=== PATIENT | male | born 1995 | race Caucasian/White ===

== ENCOUNTER 2019-09-06 16:33 | Emergency (ER) | payer BC, SELFPAY ==
--- NOTE | 2019-09-06 17:00 | XR_ITS ---
PROCEDURE: XR CHEST 2V CLINICAL HISTORY: CHEST CONGESTION The COMPARISON: No exams were available for comparison FINDINGS: The cardiomediastinal silhouette and pulmonary vascularity are within normal limits. The lungs are clear without infiltrates, suspicious nodules, or pleural effusions. No acute bony abnormalities. IMPRESSION: No acute findings. Dictated by: Jaime Ball MD 09/06/2019 18:01 Electronically signed by Jaime Ball MD in [place] 09/06/2019 18:01
[2019-09-06 17:03] VITALS: BP 148/91; PULSE 102; RESP 20; TEMP 36.6; O2SAT 100; BMI 35.1
--- NOTE | 2019-09-06 17:23 | HMH.EDUTC ---
[facility] [place] Disposition Clinical Impression: Bronchitis Sinusitis Qualifiers: Sinusitis location: unspecified location Chronicity: unspecified Qualified Code(s): J32.9 - Chronic sinusitis, unspecified Disposition: Home, Self-Care Condition on Discharge: Good Instructions: Sinusitis (Alternative Therapy), DI for Cough -- Adult, Cough Additional Instructions: *Monitor Temp, Over the counter Motrin or Tylenol as directed/as needed Tylenol every 4 hours and Motrin every 6 hours (as long as your family doctor has told you that you can take it) for fever or pain. and straight to ER if unable to lower temp less than 101.0 after medication given *Warm salt water gargles may help to soothe the throat *Throat Lozenges *Warm fluids like tea with honey may help to soothe the throat *Sleep elevated *Humidifier/Vaporizer Take medication as prescribed FOllow up with PCP if no improvement or any worsening of symptoms in the next 48-72 hours Return if needed Follow up IMMEDIATELY for new or worsening symptoms or no Noticeable improvement over the next 48-72 hours. 911 for difficulty breathing or swallowing Prescriptions: Albuterol Sulfate [Proventil-HFA 90mcg/puff Inh] 1 - 2 puffs IH Q4HP PRN #1 inh PRN Reason: Shortness Of Breath Transmission Status: Pending to [facility] methylPREDNISolone [Medrol 4mg tab] 4 mg PO DIRECTED #21 tab Transmission Status: Pending to [facility] Azithromycin [Z-Ulysses 250mg Tab] 250 mg PO DIRECTED #6 tab Transmission Status: Pending to [facility] Referrals: Provider,Referral, MD [Primary Care Provider] - As needed Medical Decision Making - Jigar Inquiry Pt receiving controlled substance: No Jigar was queried for this patient: No Vital Signs: 09/06/19 17:03 Temperature 97.8 F Temperature Source Oral Pulse Rate [Right Brachial] 102 H Respiratory Rate 20 Blood Pressure [Right Arm] 148/91 H Blood Pressure Mean [Right Arm] 110 Blood Pressure Source [Right Arm] Automatic Cuff Blood Pressure Position [Right Arm] Sitting 02 Sat by Pulse Oximetry 100 Oxygen Delivery Method Room Air Orders (Tests/Meds): ORDERS Category Date Time Status CXR 2 view (NOT portable) [XR chest 2V] Stat Exams 09/06/19 17:00 Taken - Radiology Data #1 Image(s): Chest Image Reviewed: Yes I reviewed the patient's radiology image w/the ED provider Preliminary Findings: Normal/NAD [facility] HPI - General Stated complaint: Chest congestion Time Seen by Provider: 09/06/19 17:23 Mode of Arrival: Ambulatory Source of Information: Patient Limitations: No Limitations Description of Symptoms (Recalled from Triage Doc. by RN): PATIENT C/O CHEST CONGESTION X 1 WEEK. HEENT Symptoms (Recalled from RN notes): No Resp Symptoms (Recalled from RN notes): Yes Skin Symptoms (Recalled from RN notes): No MS Symptoms (Recalled from RN notes): No Functional Status (Recalled from RN notes): WNL - History of Present Illness Provider Complaint: Patient states that he has been having sinus pain and pressure along with drainage in the back of his throat and feels like it is moving into his chest States that he has had a cough at times and coughing up some thick mucous at times States that today he felt like he was more congested so he came in to get checked - Related Data Previous Rx's Medication Instructions Recorded Albuterol Sulfate [Proventil-HFA 1 - 2 puffs IH Q4HP PRN #1 inh 09/06/19 90mcg/puff Inh] Azithromycin [Z-Ulysses 250mg Tab] 250 mg PO DIRECTED #6 tab 09/06/19 methylPREDNISolone [Medrol 4mg 4 mg PO DIRECTED #21 tab 09/06/19 tab] Allergies Allergy/AdvReac Type Severity Reaction Status Date / Time No Known Allergies Allergy Verified 09/06/19 17:06 - Worker's Comp Is this a Worker's Comp case?: No [facility] History - Hepatitis A Screen Drug use history?: No High risk sexual behaviors?: No History of sexually transmitted infection?: N
[2019-09-06 17:39] VITALS: BP 148/91; PULSE 102; RESP 20; TEMP 36.6; O2SAT 100
== END 2019-09-06 17:44 | disposition home or self-care (01) ==
PROVIDERS: Emergency Provider Nurse Practitioner
DX: J20.9 Acute bronchitis, unspecified (principal); J32.9 Chronic sinusitis, unspecified
CPT/HCPCS: 71046; 99201

== ENCOUNTER → 2020-12-20 14:40 | Outpatient (CLI) | payer BC, SELFPAY | PROVIDERS: PCP Family Medicine; Visit Provider Nurse Practitioner | DX: Z20.822 Contact with and (suspected) exposure to COVID-19 (principal); U07.1 COVID-19 | CPT/HCPCS: C9803; U0003; U0005 ==

== ENCOUNTER 2021-01-30 18:24 | Emergency (ER) | payer BC, SELFPAY ==
[2021-01-30 19:35] VITALS: BP 115/82; PULSE 119; RESP 21; TEMP 37.8; O2SAT 98; BMI 34.8
[2021-01-30 20:04] LABS: UTC Strep Screen (Rapid) Negative (Negative)
--- NOTE | 2021-01-30 20:10 | HMH.EDUTC ---
[facility] [place] Disposition Clinical Impression: Sinusitis Qualifiers: Sinusitis location: unspecified location Chronicity: unspecified Qualified Code(s): J32.9 - Chronic sinusitis, unspecified Disposition: Home, Self-Care Condition on Discharge: Good Instructions: Sinusitis, DI for Sinusitis, Azithromycin Additional Instructions: *Monitor Temp, Over the counter Motrin or Tylenol as directed/as needed Tylenol every 4 hours and Motrin every 6 hours (as long as your family doctor has told you that you can take it) for fever or pain. and straight to ER if unable to lower temp less than 101.0 after medication given *Warm salt water gargles may help to soothe the throat *Throat Lozenges *Warm fluids like tea with honey may help to soothe the throat *Sleep elevated *Humidifier/Vaporizer *Flonase 2 sprays in each nostril daily but be aware that it may take 2-3 days before you notice improvement Your throat swab was sent for culture. Those results are typically sent to your primary care. Be sure to follow up in 2-3 days with your family doctor/primary care physician if no improvement so they can review those result and treat if necessary. If you don?t have a primary care doctor, I recommend you get one but in the mean time, you will have to return to a walk in clinic Follow up IMMEDIATELY for new or worsening symptoms or no Noticeable improvement over the next 48-72 hours. 911 for difficulty breathing or swallowing You were tested for today for COVID19 your test result should be back in the next 24-48 hours, you can view your results on the [facility] [employer] portal you will be given hand out on how to log on if you have trouble you may call the [facility] You was given a handout with instructions for Self Quarantine and Self isolation for while you wait on test results and what to do if they are positive If you are positive the Health Dept will be contacting you also Make sure to take your Vitamins Vit. C Vit D and Zinc if you can take them Prescriptions: Fluticasone Propionate [Flonase 50mcg nasal spray 16gm] 1 spr NS DAILY #1 ml Transmission Status: Pending to [facility] methylPREDNISolone [Medrol 4mg tab] 4 mg PO DIRECTED #21 tab Transmission Status: Pending to [facility] Azithromycin [Z-Ulsyses 250mg Tab] 250 mg PO DIRECTED #6 tab Transmission Status: Pending to [facility] Referrals: Drake Serrano MD [Primary Care Provider] - As needed Forms: Work/School Release Medical Decision Making - Jigar Inquiry Pt receiving controlled substance: No Jigar was queried for this patient: No Vital Signs: 01/30/21 19:35 Temperature 100.0 F H Temperature Source Oral Pulse Rate [Right Brachial] 119 H Respiratory Rate 21 Blood Pressure [Right Arm] 115/82 Blood Pressure Mean [Right Arm] 93 Blood Pressure Source [Right Arm] Automatic Cuff 02 Sat by Pulse Oximetry 98 Oxygen Delivery Method Room Air - Lab Data Lab results reviewed: Yes: I reviewed the patient's lab results. Lab Results 01/30/21 19:47: Strep Scn Rapid Clinic Negative Orders (Tests/Meds): ORDERS Category Date Time Status Covid-19 Nasal PCR ([facility]) Routine Lab 01/30/21 19:50 Received Strep Screen Confirmation Stat Micro 01/30/21 19:47 Received [facility] UTC HPI - General Stated complaint: fever,sore throat,[place],weak,diarrhea Time Seen by Provider: 01/30/21 20:10 Mode of Arrival: Ambulatory Source of Information: Patient Limitations: No Limitations Description of Symptoms (Recalled from Triage Doc. by RN): PATIENT C/O RUNNY NOSE, FEVER, COUGH, CHILLS, DIARRHEA, AND NAUSEA X 2 DAYS HEENT Symptoms (Recalled from RN notes): Yes Resp Symptoms (Recalled from RN notes): No Skin Symptoms (Recalled from RN notes): No MS Symptoms (Recalled from RN notes): No Functional Status (Recalled from RN notes): WNL - History of Present Illness Provider Complaint: Patient states that he has been having sinus congestion for over a week States that for the la
[2021-01-30 20:42] VITALS: BP 115/82; PULSE 119; RESP 21; TEMP 37.8; O2SAT 98
== END 2021-01-30 20:48 | disposition home or self-care (01) ==
PROVIDERS: Emergency Provider Nurse Practitioner; PCP Family Medicine
DX: J32.9 Chronic sinusitis, unspecified (principal); Z20.822 Contact with and (suspected) exposure to COVID-19
CPT/HCPCS: 87880; 99203; C9803; G0463; U0003; U0005

== ENCOUNTER → 2021-03-12 17:36 | Outpatient (CLI) | payer BC, SELFPAY | PROVIDERS: PCP Family Medicine; Visit Provider Nurse Practitioner Family | DX: U07.1 COVID-19 (principal) | CPT/HCPCS: C9803; U0003; U0005 ==

== ENCOUNTER 2021-04-03 23:54 | Emergency (ER) | payer BC, SELFPAY ==
[2021-04-04 00:29] VITALS: BP 140/96; PULSE 103; O2SAT 97
[2021-04-04 01:00] VITALS: BP 125/71; PULSE 90; O2SAT 96
[2021-04-04 01:09] VITALS: BP 140/96; PULSE 114; RESP 21; TEMP 37.1; O2SAT 98; BMI 30.1
--- NOTE | 2021-04-04 01:42 | CT_ITS ---
PROCEDURE INFORMATION: Exam: CTA Chest With Contrast Exam date and time: 04/04/2021 1:42 AM Age: 25 years old Clinical indication: Cough; Additional info: Cough, SOB TECHNIQUE: Imaging protocol: Computed tomographic angiography of the chest with contrast. 3D rendering (Not supervised by radiologist): MIP and/or 3D reconstructed images were created by the technologist. Radiation optimization: All CT scans at this facility use at least one of these dose optimization techniques: automated exposure control; mA and/or kV adjustment per patient size (includes targeted exams where dose is matched to clinical indication); or iterative reconstruction. Contrast material: ISOVUE 370; Contrast volume: 70 ml; Contrast route: INTRAVENOUS (IV); COMPARISON: CR XR CHEST 2V 04/04/2021 1:12 AM FINDINGS: Limitations: Bolus timing is non-diagnostic for exclusion of most pulmonary emboli (segmental/subsegmental) due to suboptimal pulmonary arterial opacification (main pulmonary artery <200 HU). Pulmonary arteries: No large central pulmonary emboli (saddle embolus/lobar). Dilated central pulmonary arteries. Aorta: No aortic dissection or aneurysm. Lungs: No focal consolidation. No mass. Pleural spaces: No pneumothorax. No pleural effusion. Heart: Prominent pericardial sleeve incidentally noted along the inferior right pulmonary vein. No interventricular septal deviation or abnormal RV:LV ratio to suggest right heart strain. Lymph nodes: No enlarged lymph nodes by CT criteria. Intraperitoneal space: No emergent findings or suspicious mass lesions in the visualized upper abdomen. Bones/joints: No acute fracture or malalignment. Soft tissues: Unremarkable. IMPRESSION: 1. No acute findings in the chest. 2. No evidence of large pulmonary emboli (saddle embolus/lobar). Technically non-diagnostic study for definitive exclusion of most pulmonary emboli (segmental/subsegmental). 3. Dilated central pulmonary arteries, suggestive of pulmonary arterial hypertension. No CT evidence of right heart strain.
--- NOTE | 2021-04-04 01:42 | XR_ITS ---
PROCEDURE INFORMATION: Exam: XR Chest Exam date and time: 04/04/2021 1:42 AM Age: 25 years old Clinical indication: Cough and shortness of breath; Additional info: Cough, SOB TECHNIQUE: Imaging protocol: XR of the chest. Views: 2 views. COMPARISON: CR XR CHEST 2V 09/06/2019 5:03 PM FINDINGS: Lungs: Lungs are clear. Pleural spaces: No pleural effusion. No pneumothorax. Heart/Mediastinum: Cardiomediastinal silouhette is within normal limits. Bones/joints: No acute osseous abnormality. Soft tissues: Unremarkable. IMPRESSION: No acute findings.
[2021-04-04 02:00] VITALS: BP 117/69; PULSE 88; O2SAT 95
--- NOTE | 2021-04-04 02:56 | HMH.EDSOB ---
ED Disposition Clinical Impression: Flu Disposition: Home, Self-Care Condition on Discharge: Good Instructions: DI for H1N1 Influenza -- Adult Additional Instructions: fluids and will give tamiflu Prescriptions: Oseltamivir Phosphate [Tamiflu 75mg Capsule] 75 mg PO BID #10 cap Transmission Status: Pending to [facility] Referrals: Drake Serrano MD [Primary Care Provider] - - Critical Care Critical Care Time: No Attestation: On 04/03/21, the high probability of a clinically significant, sudden or life threatening deterioration of the following system(s) required my full and direct attention, intervention and personal management. The time I documented below is in addition to time spent performing reported procedures but includes the following listed in this critical care notation. Medical Decision Making - Medical Records Medical records reviewed: Yes: I reviewed the patient's medical records. - Jigar Inquiry Pt receiving controlled substance: No Vital Signs: 04/04/21 00:29 04/04/21 01:00 04/04/21 02:00 Pulse Rate 103 H 90 88 Blood Pressure 140/96 H 125/71 117/69 02 Sat by Pulse Oximetry 97 96 95 Oxygen Delivery Method Room Air Room Air - Lab Data Lab results reviewed: Yes: I reviewed the patient's lab results. Orders (Tests/Meds): ED MEDICATIONS Discontinued Medications Generic Name Dose Route Start Last Admin Trade Name Shantq PRN Reason Stop Dose Admin Iopamidol 70 ml 04/04/21 01:57 04/04/21 01:57 Iopamidol-370 (76%);100ml Bottle IV 04/04/21 01:58 70 ml ONCE ONE Administration Sodium Chloride 40 ml 04/04/21 01:57 04/04/21 01:57 0.9 % Sodium Chloride 50 Ml Vial IV 04/04/21 01:58 40 ml ONCE ONE Administration Sodium Chloride 10 ml 04/04/21 01:57 04/04/21 01:57 Sodium Chloride 0.9% 10ml Syr (Rad Only) IV 04/04/21 01:58 10 ml ONCE ONE Administration - Radiology Data #1 Image(s): Chest Image Reviewed: Yes I have reviewed radiologist's interpretation Preliminary Findings: Normal/NAD - CT Data CT Scan: Chest Time Received: 03:[address] Reviewed: Yes: I have viewed the radiologist's interpretation Preliminary Findings: Abnormal - Reevaluation(s) Time: 03:06 Reevaluation #1: improved Medical Decision Narrative: pt with exposure to flu and has stable exam and labs Resp/SOB HPI - General Stated Complaint: Fever, Headache, Hard breathing Time Seen by Provider: 04/04/21 02:56 Mode of Arrival: Ambulatory Source of Information: Patient, Medical Record Limitations: No Limitations - History of Present Illness pt with recent covid-19 on 03/12/21 and has been exposed to flu and presents not feeling well and back pain and sob but no prod cough and no hemoptysis- MD Complaint: shortness of breath, cough Onset (ago): day(s) Context: recent illness Severity: moderate Known history of: other (recent covid-19) Associated symptoms: denies other symptoms Treatment prior to arrival: none - Related Data Home oxygen amount: none Previous Rx's Medication Instructions Recorded Fluticasone Propionate [Flonase 1 spr NS DAILY #1 ml 01/30/21 50mcg nasal spray 16gm] amoxicillin 875 mg-potassium 1 tab PO BID #20 tab 03/01/21 clavulanate 125 mg tablet Oseltamivir Phosphate [Tamiflu 75 mg PO BID #10 cap 04/04/21 75mg Capsule] Allergies Allergy/AdvReac Type Severity Reaction Status Date / Time No Known Allergies Allergy Verified 03/01/21 09:53 - Well's Criteria PE Score Clinical signs/symptoms of DVT: No PE is #1 diagnosis or equally likely: Yes Heart rate is > 100: Yes Immobile at least 3 days, or surgery in past 4 wks: No Previously, obj. diagnosed PE or DVT: No Hemoptysis: No Malignancy w/Rx within 6mo, or palliative: No PE Score: 4 [facility] History - Hepatitis A Screen Attestation statement:: This patient has been screened for Hepatitis A risk factors. I have reviewed the patient's past medica
[2021-04-04 03:13] VITALS: BP 110/62; PULSE 81; RESP 18; TEMP 36.9; O2SAT 97
[2021-04-04 03:51] LABS: Alanine Aminotransferase 24 U/L (12-78); Albumin Level 4.4 g/dl (3.5-5.0); Albumin/Globulin Ratio 1.5 (1.1-1.8); Alkaline Phosphatase 69 U/L (38-126); Anion Gap 13.7 mEq/L (5-15); Aspartate Amino Transferase 27 U/L (17-59); Bilirubin,Total 0.4 mg/dl (0.2-1.3); Blood Urea Nitrogen 16 mg/dl (9-20); Calcium 8.7 mg/dl (8.4-10.2); Carbon Dioxide 27 mmol/L (22.0-30.0); Chloride 101 mmol/L (98-107); Creatinine Clearance Estimated 152 mL/min (50-200); Estimated Glomerular Filt Rate 91 ml/min (>60); GFR (African American) 110 ML/MIN (>60); Glucose 95 mg/dl (74-100); Influenza B, PCR Not Detected (NotDetected); Potassium 3.7 mmoL/L (3.5-5.1); Sodium 138 mmol/L (136-145); Strep Scrn Group A (Rapid) Negative (Negative); Total Protein,Serum 7.4 g/dl (6.3-8.2)
[2021-04-04 03:52] LABS: Coronavirus 19, PCR Detected (NotDetected); Influenza A, PCR Detected (NotDetected)
[2021-04-04 03:53] LABS: C-Reactive Protein 67.8 mg/L (0-4); Erythrocyte Sedimentation Rate 21 mm/hr (0-15)
[2021-04-04 04:08] LABS: Hematocrit 42.4 % (42.0-52.0); Hemoglobin 14.3 g/dL (14.1-18.0); Red Blood Count 4.93 M/mm3 (4.60-6.20); White Blood Count 5.8 K/mm3 (4.8-10.8)
[2021-04-04 04:09] LABS: Basophils % 1.2 % (0.1-2.0); Eosinophils % 1.3 % (0.1-12.0); Lymphocytes # 2.6 K/mm3 (0.7-4.5); Lymphocytes % 33.9 % (10-50); Mean Corpuscular HGB Conc 33.7 g/dL (31.8-35.4); Mean Platelet Volume 8.1 fl (7.4-10.4); Monocytes % 16.3 % (1.7-9.3); Neutrophils % 44.4 % (37.0-80.0); Platelet Count 239 K/mm3 (142-424); Red Cell Distribution Width 13.1 % (11.5-17.5)
[2021-04-04 04:10] LABS: Basophils # 0.1 K/mm3 (0-0.2); Eosinophils # 0.9 K/mm3 (0.0-0.4)
[2021-04-04 04:33] LABS: Appearance,Urine CLEAR (Clear); Bacteria,Urine Trace /lpf; Bilirubin,Urine Negative (Negative); Blood, Urine Negative (Negative); Color,Urine YELLOW (Yellow); Glucose,Urine (UA) Negative (Negative); Ketones,Urine Negative (Negative); Leukocyte Esterase,Urine Negative (Negative); Microscopic, Urine URINE MICROSCOPIC (MICROSCOPIC); Nitrate,Urine Negative (Negative); PH,Urine 5.5 (5.0-8.5); Protein,Urine Negative (Negative); RBC,Urine Occasional #/hpf (0-3); Specific Gravity, Urine >= 1.030 (1.005-1.030); Urobilinogen,Urine 0.2 EU/dl (0.2)
== END 2021-04-04 03:26 | disposition home or self-care (01) ==
PROVIDERS: Emergency Provider Emergency Medicine; PCP Family Medicine
DX: J10.1 Influenza due to other identified influenza virus with other respiratory manifestations (principal); U07.1 COVID-19
CPT/HCPCS: 71046; 71275; 80053; 81001; 84145; 85025; 85651; 86140; 87430; 96365; 96375; 99284; C9803; Q9967; U0003; U0005

== ENCOUNTER 2021-10-02 12:12 | Emergency (ER) | payer BC, SELFPAY ==
[2021-10-02 12:31] VITALS: BP 144/77; PULSE 79; RESP 16; TEMP 36.7; O2SAT 99; BMI 32.8
--- NOTE | 2021-10-02 12:40 | HMH.EDUTC ---
[facility] [place] Clinical Impression: Viral syndrome, Gastroenteritis Disposition: Home, Self-Care Condition on Discharge: Good Instructions: Viral Gastroenteritis, DI for Viral Gastroenteritis -- Adult Additional Instructions: Drink plenty of fluids. Take tylenol or ibuprofen for pain or fever. Take the medications as directed. Follow up with your regular doctor. GO TO THE ER FOR ANY WORSENING SYMPTOMS Quarantine until you know the results of your covid-19 test. Notify your school or workplace of your results and follow their instructions regarding return to work/school. Return a stool sample with the outpatient order if your symptoms continue. Prescriptions: Ondansetron [Zofran 4mg ODT] 4 mg PO Q8HP PRN #20 tab PRN Reason: Nausea Transmission Status: Received by [facility] Referrals: Drake Serrano MD [Primary Care Provider] - Forms: Work/School Release Time of Disposition: 13:12 Medical Decision Making - Medical Records Medical records reviewed: No: I reviewed the patient's medical records. - Jigar Inquiry Pt receiving controlled substance: No Vital Signs: 10/02/21 12:31 10/02/21 13:18 Temperature 98.1 F 98.1 F Temperature Source Oral Pulse Rate 79 Pulse Rate [Left] 79 Respiratory Rate 16 16 Blood Pressure 144/77 H Blood Pressure [Right Arm] 144/77 H Blood Pressure Mean [Right Arm] 99 02 Sat by Pulse Oximetry 99 - Lab Data Lab Results 10/02/21 13:23: Chlamy pneumoniae PCR Not detected, Adenovirus (PCR) Not detected, B. pertussis DNA (PCR) Not detected, Coronavirus OC43 (PCR) Not detected, Coronavirus HKU1 (PCR) Not detected, Coronavirus 229E (PCR) Not detected, SARS-CoV-2 (PCR) Not detected, Coronavirus NL63 (PCR) Not detected, Human Metapneumovir PCR Not detected, Influenza A (H1) PCR Not detected, Influ A (H1N1/09) PCR Not detected, Influenza A (H3) PCR Not detected, Influenza Type A (PCR) Not detected, Influenza Type B (PCR) Not detected, M. pneumoniae (PCR) Not detected, Parainfluenza 1 (PCR) Not detected, Parainfluenza 2 (PCR) Not detected, Parainfluenza 3 (PCR) Not detected, Parainfluenza 4 (PCR) Not detected, RSV (PCR) Not detected, Entero/Rhino (PCR) Not detected [facility] [facility] [place] - General Stated complaint: stomach pain V/D headache body sweats Time Seen by Provider: 10/02/21 12:40 Description of Symptoms (Recalled from Triage Doc. by RN): patient comes in for stomach issues. patient states that he has had diarrhea since thursday. HEENT Symptoms (Recalled from RN notes): No Resp Symptoms (Recalled from RN notes): No Skin Symptoms (Recalled from RN notes): No MS Symptoms (Recalled from RN notes): No Functional Status (Recalled from RN notes): wnl - History of Present Illness Provider Complaint: He states that for the past 3 days he has had diarrhea and nausea. He denies any abdominal pain. - Related Data Previous Rx's Medication Instructions Recorded methylprednisolone 4 mg tablets in See Rx Instructions PO PER PKG DIR 06/18/21 a dose pack #21 tab Ondansetron [Zofran 4mg ODT] 4 mg PO Q8HP PRN #20 tab 10/02/21 Allergies Allergy/AdvReac Type Severity Reaction Status Date / Time No Known Allergies Allergy Verified 10/02/21 12:36 - Worker's Comp Is this a Worker's Comp case?: No [facility] History - Hepatitis A Screen Attestation statement:: This patient has been screened for Hepatitis A risk factors. I have reviewed the patient's past medical history: Yes Laterality Cases: Bilateral: Tonsillectomy, Other Amputation: No Fractures: No - Social History Smoking Status: Never smoker Alcohol Intake: never Occupational Status: other, employed Housing: house Household Members: spouse ROS Obtained: Yes All systems reviewed & no additional complaints - Constitutional Constitutional: Denies chills, Denies fever(s), Denies poor appetite, Denies malaise - Gastrointestinal Gastrointestingal: Reports: as per HPI
[2021-10-02 13:18] VITALS: BP 144/77; PULSE 79; RESP 16; TEMP 36.7
[2021-10-02 13:31] LABS: Adenovirus,PCR Not Detected (NotDetected); Bordetella Pertussis Not Detected (NotDetected); Chlamydophila Pneumoniae, PCR Not Detected (NotDetected); Coronavirus 19, PCR Not Detected (NotDetected); Coronavirus 229E Not Detected (NotDetected); Coronavirus NL63 Not Detected (NotDetected); Coronavirus OC43 Not Detected (NotDetected); Coronovirus HKU1,PCR Not Detected (NotDetected); Human Metapneumovirus Not Detected (NotDetected); Influenza A, PCR Not Detected (NotDetected); Influenza AH1, 2009 Not Detected (NotDetected); Influenza AH1, PCR Not Detected (NotDetected); Influenza AH3,PCR Not Detected (NotDetected); Influenza B, PCR Not Detected (NotDetected); Mycoplasma Pneumoniae, PCR Not Detected (NotDetected); Parainfluenza 1, PCR Not Detected (NotDetected); Parainfluenza 2, PCR Not Detected (NotDetected); Parainfluenza 3, PCR Not Detected (NotDetected); Parainfluenza 4, PCR Not Detected (NotDetected); Respiratory Syncytial Virus Not Detected (NotDetected); Rhinovirus/Enterovirus Not Detected (NotDetected)
== END 2021-10-02 13:26 | disposition home or self-care (01) ==
PROVIDERS: Emergency Provider Nurse Practitioner Family; PCP Family Medicine
DX: A08.4 Viral intestinal infection, unspecified (principal)
CPT/HCPCS: 87581; 87632; 87798; 99212; C9803; G0463; U0003; U0005

== ENCOUNTER → 2021-10-03 15:42 | Outpatient (CLI) | payer BC, SELFPAY ==
[2021-10-03 15:52] LABS: Adenovirus F 40/41, stool Not Detected (NotDetected); Astrovirus Not Detected (NotDetected); Clostridium Difficile A/B, PCR Not Detected (NotDetected); Cryptosporidium Not Detected (NotDetected); Cyclospora Cayetanesis Not Detected (NotDetected); Entamoeba histolytica Not Detected (NotDetected); Enteroaggregative E coli Not Detected (NotDetected); Enterotoxigenic E coli Not Detected (NotDetected); Giardia lamblia Not Detected (NotDetected); Norovirus Not Detected (NotDetected); Plesimonas Shigalloides, PCR Not Detected (NotDetected); Rotavirus A Not Detected (NotDetected); Salmonella, PCR Not Detected (NotDetected); Sapovirus Not Detected (NotDetected); Shiga-like toxin E coli Not Detected (NotDetected); Shigella Enterovasive E coli Not Detected (NotDetected); Vibrio Cholerae Not Detected (NotDetected); Vibrio, PCR Not Detected (NotDetected); Yersinia Entercolitica, PCR Not Detected (NotDetected)
[2021-10-03 20:24] LABS: Campylobacter Detected (NotDetected); Enteropathogenic E coli Detected (NotDetected)
== END ==
PROVIDERS: Nurse Practitioner Family; PCP Family Medicine; Visit Provider Ophthalmology
DX: R19.7 Diarrhea, unspecified (principal); A04.5 Campylobacter enteritis; A04.4 Other intestinal Escherichia coli infections
CPT/HCPCS: 87507

== ENCOUNTER 2021-12-03 13:36 | Emergency (ER) | payer BC, SELFPAY ==
[2021-12-03 14:37] VITALS: BP 117/75; PULSE 70; RESP 16; TEMP 37.1; O2SAT 99; BMI 33.5
--- NOTE | 2021-12-03 15:02 | EXP.UTC ---
Discharge Plan Disposition Patient Disposition: Home, Self-Care Condition: Good Prescriptions Prescriptions: New benzonatate [benzonatate] 100 mg capsule 100 mg PO TIDP PRN (Reason: Cough) Qty: 30 0RF No Action methylprednisolone [Medrol (Ulysses)] 4 mg tablets,dose pack See Rx Instructions PO PER PKG DIR Qty: 21 0RF Rx Instructions: PO PER PKG DIR ondansetron 4 MG tablet,disintegrating 4 mg PO Q8HP PRN (Reason: Nausea) Qty: 20 0RF Referrals Follow up/Referrals: Drake Serrano MD [Primary Care Provider] - See instructions Activity Restrictions/Add. Instructions Additional Instructions/Restrictions: Drink plenty of fluids. Take tylenol for pain or fever. Return if you begin to have difficulty breathing. Follow up with your regular doctor. GO TO THE ER FOR ANY WORSENING SYMPTOMS Quarantine until you know the results of your covid-19 test. Notify your school or workplace of your results and follow their instructions regarding return to work/school. Clinical Impressions Clinical Impression: Viral syndrome Stand Alone Forms Stand Alone Forms: Work/School Release Instructions Patient Instructions: Coronavirus Disease 2019, Preventing the Spread of Coronavirus Discharge Instructions Discharge ED Provider: Tunde Horn [facility] [place] HPI General Stated complaint: Congestion Mode of Arrival: Ambulatory Source of Information: Patient Limitations: deaf Time Seen by Provider: 12/03/21 15:01 Description of Symptoms (Recalled from Triage Doc. by RN): pt comes in for covid test. symptoms include cough and congestion. patient was exposed by grandfather in law. HEENT Symptoms (Recalled from RN notes): Yes Resp Symptoms (Recalled from RN notes): Yes Skin Symptoms (Recalled from RN notes): No MS Symptoms (Recalled from RN notes): No Functional Status (Recalled from RN notes): n/a Related Data Previous Rx's Medication Instructions Recorded methylprednisolone 4 mg tablets in See Rx Instructions PO PER PKG DIR 06/18/21 a dose pack (Medrol (Ulysses)) #21 tabs ondansetron 4 mg disintegrating 4 mg PO Q8HP PRN Nausea #20 tabs 10/02/21 tablet benzonatate 100 mg capsule 100 mg PO TIDP PRN Cough #30 caps 12/03/21 Allergies Allergy/AdvReac Type Severity Reaction Status Date / Time No Known Allergies Allergy Verified 12/03/21 14:41 Worker's Comp Is this a Worker's Comp case?: No PFSH PFSH Social History Smoking Status: Never smoker alcohol intake: never current occupational status: employed and other Travel in the last 8 weeks: None household members: spouse housing: house ROS Obtained: Yes All systems reviewed & no additional complaints except as documented Constitutional Constitutional: Reports system reviewed and no additional complaints, except as documented, Denies chills and Denies fever(s) Eyes Eyes: Denies eye discharge ENT Ears, Nose, Mouth, and Throat: Denies dysphagia, Denies sore throat and Denies throat swelling Cardiovascular Cardiovascular: Denies chest pain and Denies dyspnea Respiratory Respiratory: Denies chest congestion, Denies cough and Denies dyspnea Gastrointestinal Gastrointestingal: Denies abdominal pain, constipation, diarrhea, dysphagia, nausea or vomiting Musculoskeletal Musculoskeletal: Denies arthralgias Integumentary/Breasts Skin/Breast: Denies rash Neurologic Neurologic: Denies paresthesias Allergic/Immunologic Allergic/Immunologic: Denies throat swelling Physical Exam General General appearance: alert and in no apparent distress Head Head exam: atraumatic, normocephalic and normal inspection Eye Eye exam: Present normal appearance, PERRL and EOMI ENT ENT exam: Present normal exam, normal oropharynx, mucous membranes moist, TM's normal bilaterally and normal external ear exam Neck Neck exam: Present normal inspection, full ROM and trachea midline; Absent meningismus or lymphadenop
[2021-12-03 15:12] VITALS: BP 117/75; PULSE 70; RESP 16; TEMP 37.1
== END 2021-12-03 15:22 | disposition home or self-care (01) ==
PROVIDERS: Emergency Provider Nurse Practitioner Family; PCP Family Medicine
DX: B34.9 Viral infection, unspecified (principal); R05.9 Cough, unspecified; R11.0 Nausea; Z20.822 Contact with and (suspected) exposure to COVID-19; Z79.82 Long term (current) use of aspirin
CPT/HCPCS: 99213; C9803; G0463; U0003; U0005

== ENCOUNTER 2022-01-23 16:58 | Emergency (ER) | payer BC, SELFPAY ==
[2022-01-23 18:40] VITALS: BP 108/55; PULSE 106; RESP 18; TEMP 37.9; O2SAT 97; BMI 31.9
[2022-01-23 19:00] VITALS: BP 114/64; PULSE 89; O2SAT 91
[2022-01-23 19:30] VITALS: BP 116/69; PULSE 90; O2SAT 96
--- NOTE | 2022-01-23 19:32 | PC.NURSE ---
Warm blanket provided
--- NOTE | 2022-01-23 19:34 | PC.NURSE ---
shift change report given to israel finnegan and anastaciorn
--- NOTE | 2022-01-23 19:41 | XR_ITS ---
PROCEDURE INFORMATION: Exam: XR Chest Exam date and time: 01/23/2022 7:47 PM Age: 26 years old Clinical indication: Fever; Additional info: Chest tightness, fever TECHNIQUE: Imaging protocol: Radiologic exam of the chest. Views: 2 views. COMPARISON: CR XR CHEST 2V 04/04/2021 1:12 AM FINDINGS: Lungs: No consolidation. Pleural spaces: No pneumothorax. Heart/Mediastinum: No cardiomegaly. Bones/joints: No acute fracture. IMPRESSION: No acute findings.
--- NOTE | 2022-01-23 19:41 | HMH.EDGENADL ---
Discharge Plan Disposition Patient Disposition: Home, Self-Care Condition: Good Chief Complaint: Fever Prescriptions Prescriptions: No Action methylprednisolone [Medrol (Ulysses)] 4 mg tablets,dose pack See Rx Instructions PO PER PKG DIR Qty: 21 0RF Rx Instructions: PO PER PKG DIR benzonatate [benzonatate] 100 mg capsule 100 mg PO TIDP PRN (Reason: Cough) Qty: 30 0RF ondansetron 4 MG tablet,disintegrating 4 mg PO Q8HP PRN (Reason: Nausea) Qty: 20 0RF Referrals Follow up/Referrals: Drake Serrano MD [Primary Care Provider] - See instructions Activity Restrictions/Add. Instructions Additional Instructions/Restrictions: Rest, drink plenty of fluids. Tylenol for pain or fever. Follow-up with primary care provider if not improving in 4 to 5 days. Clinical Impressions Clinical Impression: Viral illness, Gastroenteritis Stand Alone Forms Stand Alone Forms: Work/School Release Discharge ED Provider: Cristian Chen General Adult HPI General Chief complaint: Fever Stated complaint: FEVER, BODYACHE, VOMITTING Time Seen by Provider: 01/23/22 19:33 Mode of Arrival: Ambulatory Source of Information: Patient Limitations: No Limitations Description of Symptoms (Recalled from ER Triage Doc. by RN): Pt reports body aches, fever and nasal congestion that began yesterday. Pt states no known exposure to any illness. History of Present Illness HPI narrative: Patient does not feel well since yesterday. Began getting lightheaded yesterday, body aches, feverish, very weak. He has poor appetite and nausea. He had diarrhea off and on yesterday, but none since last evening. Total 3 episodes, without blood. He states his urine is very dark. States no matter how much he drinks it is still very dark. He has tightness in his chest, feels like he cannot get a deep breath. However, states he is not coughing. Denies rhinorrhea or sore throat. No known exposure to any illnesses. No chronic medical problems, no prior abdominal surgeries. Related Data Previous Rx's Medication Instructions Recorded methylprednisolone 4 mg tablets in See Rx Instructions PO PER PKG DIR 06/18/21 a dose pack (Medrol (Ulysses)) #21 tabs ondansetron 4 mg disintegrating 4 mg PO Q8HP PRN Nausea #20 tabs 10/02/21 tablet benzonatate 100 mg capsule 100 mg PO TIDP PRN Cough #30 caps 12/03/21 Allergies Allergy/AdvReac Type Severity Reaction Status Date / Time No Known Allergies Allergy Verified 12/03/21 14:41 [facility] Social History Smoking Status: Never smoker alcohol intake: never current occupational status: employed and other Travel in the last 8 weeks: None household members: spouse housing: house ROS Obtained: Yes Systems reviewed as appropriate & no additional complaints except as documented Constitutional Constitutional: Reports fever(s), Denies headache(s) and Reports weakness ENT Ears, Nose, Mouth, and Throat: Denies headache(s), Denies nasal discharge and Denies sore throat Cardiovascular Cardiovascular: Reports chest pain (tightness) Respiratory Respiratory: Reports shortness of breath and Denies cough Gastrointestinal Gastrointestingal: Reports diarrhea and nausea; Denies abdominal pain, constipation or vomiting Genitourinary Male Genitourinary: Reports as per HPI (dark urine), Denies difficulty urinating and Denies flank pain Musculoskeletal Musculoskeletal: Denies numbness Neurologic Neurologic: Denies headache(s), Denies numbness and Reports weakness Physical Exam General General appearance: alert and in no apparent distress Comment: HR 112 Head Head exam: atraumatic and normocephalic Eye Eye exam: Present normal appearance and EOMI ENT ENT exam: Present mucous membranes moist Neck Neck exam: Present normal inspection and trachea midline Chest Chest inspection: Present normal inspection and symmetric chest wall rise Respiratory Respirat
--- NOTE | 2022-01-23 19:43 | CT_ITS ---
PROCEDURE INFORMATION: Exam: CT Abdomen And Pelvis With Contrast Exam date and time: 01/23/2022 7:58 PM Age: 26 years old Clinical indication: Abdominal pain; Generalized; Additional info: Abdo pain, fever TECHNIQUE: Imaging protocol: Computed tomography of the abdomen and pelvis with contrast. Radiation optimization: All CT scans at this facility use at least one of these dose optimization techniques: automated exposure control; mA and/or kV adjustment per patient size (includes targeted exams where dose is matched to clinical indication); or iterative reconstruction. Contrast material: ISOVUE; Contrast volume: 75 ml; Contrast route: IV; COMPARISON: CT ANGIO CHEST PE PROTOCOL 04/04/2021 1:32 AM FINDINGS: Liver: Normal. No mass. Gallbladder and bile ducts: No calcified stones. No ductal dilation. Pancreas: Normal enhancement. No ductal dilation. Spleen: No splenomegaly. Adrenal glands: No mass. Kidneys and ureters: No hydronephrosis. Stomach and bowel: No obstruction. No mucosal thickening. Appendix: No evidence of appendicitis. Intraperitoneal space: No free air. No significant fluid collection. Vasculature: No abdominal aortic aneurysm. Lymph nodes: No enlarged lymph nodes. Urinary bladder: Urinary bladder is decompressed and not well evaluated. Reproductive: No acute abnormality. Bones/joints: No acute fracture. Soft tissues: No soft tissue swelling. IMPRESSION: No acute findings.
--- NOTE | 2022-01-23 19:49 | ECG_ITS ---
APPROVED REPORT Exam: Resting ECG HR:87 bpm ECG Measurements Heart Rate 87 AXES GA 168 P 63 QRSd 102 QRS 83 QT 336 T 56 QTc 380 Conclusion SINUS RHYTHM NORMAL ECG UNCONFIRMED REPORT Electronically signed by : Stephen Atkins MD 01/26/2022 21:22:49
--- NOTE | 2022-01-23 19:56 | PC.NURSE ---
Pt gone to RAD for CT and CXR
[2022-01-23 20:09] LABS: Basophils # 0.2 K/mm3 (0-0.2); Basophils % 1.3 % (0.1-2.0); Eosinophils % 0.3 % (0.1-12.0); Hematocrit 44.4 % (42.0-52.0); Hemoglobin 15.1 g/dL (14.1-18.0); Lymphocytes # 1.3 K/mm3 (0.7-4.5); Lymphocytes % 11.2 % (10-50); Mean Corpuscular HGB Conc 33.9 g/dL (31.8-35.4); Mean Corpuscular Hemoglobin 28.3 pg (27.0-31.2); Mean Corpuscular Volume 83.4 fl (80-94); Monocytes # 1.1 K/mm3 (0.1-1.0); Monocytes % 9.1 % (1.7-9.3); Neutrophils # 8.9 K/mm3 (1.8-7.8); Platelet Count 248 K/mm3 (142-424); Red Blood Count 5.33 M/mm3 (4.60-6.20); Red Cell Distribution Width 12.8 % (11.5-17.5); White Blood Count 11.4 K/mm3 (4.8-10.8)
[2022-01-23 20:10] LABS: Microscopic, Urine URINE MICROSCOPIC (MICROSCOPIC)
[2022-01-23 20:11] LABS: Appearance,Urine CLEAR (Clear); Bilirubin,Urine Negative (Negative); Blood, Urine Negative (Negative); Color,Urine YELLOW (Yellow); Glucose,Urine (UA) Negative (Negative); Ketones,Urine Negative (Negative); Leukocyte Esterase,Urine Negative (Negative); Nitrate,Urine Negative (Negative); Protein,Urine TRACE (Negative); Specific Gravity, Urine >= 1.030 (1.005-1.030); Urobilinogen,Urine 0.2 EU/dl (0.2)
[2022-01-23 20:12] LABS: Chloride 98 mmol/L (98-107); Potassium 3.9 mmoL/L (3.5-5.1); Sodium 136 mmol/L (136-145)
[2022-01-23 20:14] LABS: Alanine Aminotransferase 25 U/L (12-78); Alkaline Phosphatase 90 U/L (38-126); Anion Gap 11.9 mEq/L (5-15); Aspartate Amino Transferase 28 U/L (17-59); Bilirubin,Total 0.5 mg/dl (0.2-1.3); Blood Urea Nitrogen 14 mg/dl (9-20); Carbon Dioxide 30 mmol/L (22.0-30.0); Creatinine Clearance Estimated 137 mL/min (50-200); Estimated Glomerular Filt Rate 81 ml/min (>60); GFR (African American) 98 ML/MIN (>60); Lipase 14 U/L (23-300)
[2022-01-23 20:15] LABS: Albumin Level 4.6 g/dl (3.5-5.0); Albumin/Globulin Ratio 1.6 (1.1-1.8); Calcium 8.6 mg/dl (8.4-10.2); Globulin 2.8 g/dL (1.3-3.2); Glucose 104 mg/dl (74-100); Total Protein,Serum 7.4 g/dl (6.3-8.2)
[2022-01-23 20:20] LABS: C-Reactive Protein 68.3 mg/L (0-4)
[2022-01-23 20:23] LABS: Lactic Acid 0.7 mmol/L (0.7-2.1)
[2022-01-23 20:30] VITALS: BP 131/77; PULSE 86; O2SAT 100
[2022-01-23 20:33] LABS: Troponin I < 0.01 ng/ml (0.00-0.034)
[2022-01-23 20:42] LABS: Coronavirus 19, PCR Not Detected (NotDetected); Influenza A, PCR Not Detected (NotDetected); Influenza B, PCR Not Detected (NotDetected)
[2022-01-23 21:00] VITALS: BP 120/60; PULSE 83; O2SAT 96
[2022-01-23 21:08] LABS: Bacteria,Urine 1+ /lpf; Mucus,Urine 2+ /lpf; WBC,Urine Occasional #/hpf (0-3)
[2022-01-23 21:15] LABS: Erythrocyte Sedimentation Rate 14 mm/hr (0-15)
[2022-01-23 21:55] VITALS: BP 108/63; PULSE 81; RESP 16; TEMP 37.5; O2SAT 97
== END 2022-01-23 22:00 | disposition home or self-care (01) ==
PROVIDERS: Emergency Provider Emergency Medicine; PCP Family Medicine
DX: K52.9 Noninfective gastroenteritis and colitis, unspecified (principal); B34.9 Viral infection, unspecified
CPT/HCPCS: 71046; 74177; 80053; 81001; 83605; 83690; 84484; 85025; 85651; 86140; 87040; 93005; 96365; 96375; 99285; C9803; J2405; Q9967; U0003; U0005

== ENCOUNTER 2022-03-01 16:27 | Emergency (ER) | payer BC, SELFPAY ==
[2022-03-01 17:55] VITALS: BP 138/78; PULSE 91; RESP 16; TEMP 36.8; O2SAT 98; BMI 31.9
--- NOTE | 2022-03-01 17:56 | EXP.UTC ---
Discharge Plan Disposition Patient Disposition: Home, Self-Care Condition: Good Prescriptions Prescriptions: New benzonatate [benzonatate] 100 mg capsule 100 mg PO TIDP PRN (Reason: Cough) Qty: 30 0RF ondansetron 4 mg Tablet,Disintegrating 4 mg PO Q8H PRN (Reason: Nausea) Qty: 12 0RF Referrals Follow up/Referrals: Drake Serrano MD [Primary Care Provider] - See instructions Activity Restrictions/Add. Instructions Additional Instructions/Restrictions: Drink plenty of fluids. Take tylenol for pain or fever. Return if you begin to have difficulty breathing. Follow up with your regular doctor. GO TO THE ER FOR ANY WORSENING SYMPTOMS Clinical Impressions Clinical Impression: Viral syndrome Stand Alone Forms Stand Alone Forms: Work/School Release Instructions Patient Instructions: DI for Viral Syndrome Discharge ED Provider: Tunde Horn [facility] [place] HPI General Stated complaint: fever,[place] Abd Pain Time Seen by Provider: 03/01/22 17:56 History of Present Illness Provider Complaint: He states that for the past 2 days she has had sore throat, chills, body aches and low grade fever. Related Data Previous Rx's Medication Instructions Recorded benzonatate 100 mg capsule 100 mg PO TIDP PRN Cough #30 caps 03/01/22 ondansetron 4 mg disintegrating 4 mg PO Q8H PRN Nausea #12 tabs 03/01/22 tablet Allergies Allergy/AdvReac Type Severity Reaction Status Date / Time No Known Allergies Allergy Verified 03/01/22 17:58 [facility] Disclaimer: The information contained in this section may have been updated after the patient was seen, as this information can be updated by other users. Social History Smoking Status: Never smoker alcohol intake: never current occupational status: employed and other Travel in the last 8 weeks: None household members: spouse housing: house ROS Obtained: Yes All systems reviewed & no additional complaints except as documented Constitutional Constitutional: Reports chills and Reports fever(s) Eyes Eyes: Denies eye discharge ENT Ears, Nose, Mouth, and Throat: Reports as per HPI Cardiovascular Cardiovascular: Denies chest pain Respiratory Respiratory: Denies chest congestion and Reports cough Gastrointestinal Gastrointestingal: Reports nausea; Denies abdominal pain, constipation, cramping, diarrhea or vomiting Musculoskeletal Musculoskeletal: Denies arthralgias Integumentary/Breasts Skin/Breast: Denies rash Neurologic Neurologic: Denies paresthesias Physical Exam General General appearance: alert and in no apparent distress Head Head exam: atraumatic, normocephalic and normal inspection Eye Eye exam: Present normal appearance, PERRL and EOMI ENT ENT exam: Present mucous membranes moist and normal external ear exam Expanded ENT Exam TM/Canal exam: Bilateral TM: erythema and bulging Nose exam: Absent sinus tenderness Mouth exam: Present normal external inspection; Absent drooling Teeth exam: Present normal inspection Throat exam: Present tonsillar erythema, tonsillomegaly and tonsillar exudate Neck Neck exam: Present normal inspection, full ROM and trachea midline; Absent tenderness, meningismus or lymphadenopathy Chest Chest inspection: Present normal inspection and symmetric chest wall rise; Absent tenderness Respiratory Respiratory exam: Present normal lung sounds bilaterally; Absent respiratory distress, wheezes or stridor Cardiovascular Cardiovascular exam: Present regular rate and normal rhythm; Absent systolic murmur or diastolic murmur Abdominal Exam Abdominal exam: Present soft and normal bowel sounds; Absent distention, tenderness, guarding, rebound or rigidity Extremities Exam Extremities exam: Present normal inspection and normal capillary refill; Absent calf tenderness Back Exam Back exam: Present normal inspection and full ROM; Absent tenderness, CVA tenderness (R) or CVA tenderne
[2022-03-01 18:13] LABS: UTC Influenza A Antigen Negative (Negative)
[2022-03-01 18:14] LABS: UTC Influenza B Antigen Negative (Negative)
[2022-03-01 19:04] LABS: Adenovirus,PCR Not Detected (NotDetected); Bordetella Pertussis Not Detected (NotDetected); Chlamydophila Pneumoniae, PCR Not Detected (NotDetected); Coronavirus 229E Not Detected (NotDetected); Coronavirus NL63 Not Detected (NotDetected); Coronavirus OC43 Not Detected (NotDetected); Coronovirus HKU1,PCR Not Detected (NotDetected); Human Metapneumovirus Not Detected (NotDetected); Influenza A, PCR Not Detected (NotDetected); Influenza AH1, 2009 Not Detected (NotDetected); Influenza AH1, PCR Not Detected (NotDetected); Influenza AH3,PCR Not Detected (NotDetected); Influenza B, PCR Not Detected (NotDetected); Mycoplasma Pneumoniae, PCR Not Detected (NotDetected); Parainfluenza 1, PCR Not Detected (NotDetected); Parainfluenza 2, PCR Not Detected (NotDetected); Parainfluenza 3, PCR Not Detected (NotDetected); Parainfluenza 4, PCR Not Detected (NotDetected); Respiratory Syncytial Virus Not Detected (NotDetected); Rhinovirus/Enterovirus Not Detected (NotDetected)
[2022-03-01 19:13] VITALS: BP 138/78; PULSE 91; RESP 16; TEMP 36.8
[2022-03-02 01:21] LABS: Coronavirus 19, PCR Detected (NotDetected)
== END 2022-03-01 19:15 | disposition home or self-care (01) ==
PROVIDERS: Emergency Provider Nurse Practitioner Family; PCP Family Medicine
DX: U07.1 COVID-19 (principal); J02.9 Acute pharyngitis, unspecified; R10.9 Unspecified abdominal pain; R50.9 Fever, unspecified; R11.0 Nausea; R05.9 Cough, unspecified; M79.10 Myalgia, unspecified site; R51.9 Headache, unspecified; Z79.899 Other long term (current) drug therapy
CPT/HCPCS: 87581; 87632; 87798; 87804; 99213; C9803; G0463; U0003; U0005

== ENCOUNTER 2022-05-21 08:18 | Emergency (ER) | payer BC, SELFPAY ==
[2022-05-21 08:19] VITALS: BP 137/94; PULSE 75; RESP 17; TEMP 36.7; O2SAT 98; BMI 33.4
[2022-05-21 08:34] VITALS: BP 134/92; PULSE 77; O2SAT 98
[2022-05-21 08:58] LABS: Coronavirus 19, PCR Not Detected (NotDetected); Influenza A, PCR Not Detected (NotDetected); Influenza B, PCR Not Detected (NotDetected)
[2022-05-21 09:00] VITALS: BP 119/75; PULSE 69; O2SAT 96
[2022-05-21 09:01] LABS: Basophils # 0.1 K/mm3 (0-0.2); Basophils % 1.9 % (0.1-2.0); Eosinophils # 0.4 K/mm3 (0.0-0.4); Eosinophils % 6.5 % (0.1-12.0); Hematocrit 45.5 % (42.0-52.0); Hemoglobin 15.3 g/dL (14.1-18.0); Lymphocytes # 2.3 K/mm3 (0.7-4.5); Mean Corpuscular HGB Conc 33.7 g/dL (31.8-35.4); Mean Corpuscular Hemoglobin 28.3 pg (27.0-31.2); Mean Corpuscular Volume 84.1 fl (80-94); Mean Platelet Volume 7.4 fl (7.4-10.4); Monocytes # 0.6 K/mm3 (0.1-1.0); Neutrophils # 2.7 K/mm3 (1.8-7.8); Neutrophils % 43.6 % (37.0-80.0); Platelet Count 247 K/mm3 (142-424); Red Blood Count 5.41 M/mm3 (4.60-6.20); Red Cell Distribution Width 13.1 % (11.5-17.5); White Blood Count 6.1 K/mm3 (4.8-10.8)
[2022-05-21 09:03] LABS: Chloride 103 mmol/L (98-107); Potassium 4.3 mmoL/L (3.5-5.1); Sodium 139 mmol/L (136-145)
[2022-05-21 09:05] LABS: Blood Urea Nitrogen 21 mg/dl (9-20); Creatinine Clearance Estimated 176 mL/min (50-200); Estimated Glomerular Filt Rate 102 ml/min (>60); GFR (African American) 123 ML/MIN (>60)
[2022-05-21 09:06] LABS: Alanine Aminotransferase 25 U/L (12-78); Albumin Level 4.3 g/dl (3.5-5.0); Albumin/Globulin Ratio 1.3 (1.1-1.8); Alkaline Phosphatase 86 U/L (38-126); Anion Gap 8.3 mEq/L (5-15); Aspartate Amino Transferase 25 U/L (17-59); Bilirubin,Total 0.6 mg/dl (0.2-1.3); Calcium 8.8 mg/dl (8.4-10.2); Carbon Dioxide 32 mmol/L (22.0-30.0); Globulin 3.2 g/dL (1.3-3.2); Glucose 105 mg/dl (74-100); Total Protein,Serum 7.5 g/dl (6.3-8.2)
--- NOTE | 2022-05-21 09:18 | PC.NURSE ---
DR DOSS AT BEDSIDE
--- NOTE | 2022-05-21 09:21 | HMH.EDGENADL ---
Discharge Plan Disposition Patient Disposition: Home, Self-Care Condition: Good Prescriptions Prescriptions: New ondansetron 4 mg tablet,disintegrating 4 mg PO Q8H PRN (Reason: nausea and vomiting) Qty: 10 0RF No Action bupropion HCl [Wellbutrin SR] 150 mg tablet sustained-release 12 hr 150 mg PO BID Qty: 180 3RF sulfamethoxazole-trimethoprim [Bactrim DS] 800-160 mg tablet 1 tab PO BID Qty: 10 0RF Referrals Follow up/Referrals: Drake Serrano MD [Primary Care Provider] - See instructions Activity Restrictions/Add. Instructions Additional Instructions/Restrictions: Zofran as needed for nausea and vomiting. Tylenol as needed for pain. Call back to the emergency department or check [facility] portal in 2 to 4 hours for results of diarrhea panel. Additional instructions for VOMITING/DIARRHEA: See your physician as soon as possible for further evaluation. Drink plenty of fluids. Return immediately if severe abdominal pain, uncontrollable vomiting, shortness of breath, fever, bloody diarrhea, vomiting of blood or abdominal distention. Clinical Impressions Clinical Impression: Gastroenteritis Stand Alone Forms Stand Alone Forms: Work/School Release Instructions Patient Instructions: DI for Diarrhea and Traveler's Diarrhea -- Adult, DI for Viral Gastroenteritis -- Adult, DI for Vomiting -- Adult Discharge ED Provider: Cristian Chen Adult HPI General Chief complaint: Nausea/Vomiting/Diarrhea Stated complaint: Vomiting headache diarrhea fever Time Seen by Provider: 05/21/22 09:16 Mode of Arrival: Ambulatory Limitations: No Limitations Description of Symptoms (Recalled from ER Triage Doc. by RN): PT REPORTS HEADACHE, N/V/D AND DARK STOOLS SINCE THURSDAY NIGHT. NO FEVER AT THIS TIME. History of Present Illness HPI narrative: Patient states that he has been sick since Thursday night, 2 days ago. He has vomiting and diarrhea, headache, low-grade fever, generalized abdominal pain. States that his diarrhea is straight black water . No vomiting of blood. No known exposures. No recent travel. He was prescribed antibiotics on Thursday by his primary care provider for an infected pimple on the back of his head, he just picked up the antibiotics last night and has not taken any as of yet. No other recent antibiotics. Related Data Previous Rx's Medication Instructions Recorded bupropion HCl 150 mg tablet,12 hr 150 mg PO BID #180 ea 05/19/22 sustained-release (Wellbutrin SR) sulfamethoxazole 800 1 tab PO BID #10 tabs 05/19/22 mg-trimethoprim 160 mg tablet (Bactrim DS) ondansetron 4 mg disintegrating 4 mg PO Q8H PRN nausea and 05/21/22 tablet vomiting #10 tabs Allergies Allergy/AdvReac Type Severity Reaction Status Date / Time No Known Allergies Allergy Verified 04/10/22 10:54 [facility] Disclaimer: The information contained in this section may have been updated after the patient was seen, as this information can be updated by other users. Social History Smoking Status: Never smoker alcohol intake: never current occupational status: employed and other Travel in the last 8 weeks: None household members: spouse housing: house ROS Obtained: Yes Systems reviewed as appropriate & no additional complaints except as documented Constitutional Constitutional: Reports fever(s), Reports headache(s) and Denies weakness ENT Ears, Nose, Mouth, and Throat: Reports headache(s), Denies nasal discharge and Denies sore throat Cardiovascular Cardiovascular: Denies chest pain Respiratory Respiratory: Denies shortness of breath and Denies cough Gastrointestinal Gastrointestingal: Reports abdominal pain, diarrhea, nausea and vomiting; Denies constipation Genitourinary Male Genitourinary: Denies difficulty urinating and Denies flank pain Musculoskeletal Musculoskeletal: Denies numbness Neurologic Neurologic: Report
--- NOTE | 2022-05-21 09:23 | PC.NURSE ---
ASSISTED TO BR TO PROVIDE STOOL SPECIMEN
[2022-05-21 09:29] VITALS: BP 116/72; PULSE 79; O2SAT 96
[2022-05-21 09:34] LABS: Adenovirus F 40/41, stool Not Detected (NotDetected); Astrovirus Not Detected (NotDetected); Campylobacter Not Detected (NotDetected); Clostridium Difficile A/B, PCR Not Detected (NotDetected); Cryptosporidium Not Detected (NotDetected); Cyclospora Cayetanesis Not Detected (NotDetected); Entamoeba histolytica Not Detected (NotDetected); Enteroaggregative E coli Not Detected (NotDetected); Enteropathogenic E coli Not Detected (NotDetected); Enterotoxigenic E coli Not Detected (NotDetected); Giardia lamblia Not Detected (NotDetected); Plesimonas Shigalloides, PCR Not Detected (NotDetected); Rotavirus A Not Detected (NotDetected); Salmonella, PCR Not Detected (NotDetected); Sapovirus Not Detected (NotDetected); Shiga-like toxin E coli Not Detected (NotDetected); Shigella Enterovasive E coli Not Detected (NotDetected); Vibrio Cholerae Not Detected (NotDetected); Vibrio, PCR Not Detected (NotDetected); Yersinia Entercolitica, PCR Not Detected (NotDetected)
[2022-05-21 09:39] LABS: Occult Blood,Stool Negative (Negative)
--- NOTE | 2022-05-21 09:53 | PC.NURSE ---
PT MEDICATED PER EMAR, NO NEEDS AT THIS TIME
--- NOTE | 2022-05-21 10:08 | PC.NURSE ---
DR DOSS AT BEDSIDE TO REEVALUATE PT
[2022-05-21 10:13] VITALS: BP 115/71; PULSE 77; RESP 17; TEMP 36.6; O2SAT 98
[2022-05-21 11:46] LABS: Norovirus Detected (NotDetected)
--- NOTE | 2022-05-21 12:01 | PC.NURSE ---
notified ER of pt stool sample results. called pt and notified him of results, advised him to keep himself hydrate, wash hands frequently, clean frequently touched surfaces often.
== END 2022-05-21 10:18 | disposition home or self-care (01) ==
PROVIDERS: Emergency Provider Emergency Medicine; PCP Family Medicine
DX: K52.9 Noninfective gastroenteritis and colitis, unspecified (principal); Z20.822 Contact with and (suspected) exposure to COVID-19
CPT/HCPCS: 80053; 82272; 85025; 87506; 96361; 96374; 96375; 99285; C9803; G0328; J2405; U0003; U0005

== ENCOUNTER 2022-09-01 17:25 | Emergency (ER) | payer BC, SELFPAY ==
[2022-09-01 17:30] VITALS: BP 127/78; PULSE 102; RESP 18; TEMP 37.2; O2SAT 99; BMI 32.0
--- NOTE | 2022-09-01 17:54 | EXP.UTC ---
Discharge Plan Disposition Patient Disposition: Home, Self-Care Condition: Good Prescriptions Prescriptions: New methylprednisolone [Medrol (Ulysses)] 4 mg tablets,dose pack See Rx Instructions .Route .COMPLEX 6 Days Qty: 21 0RF Rx Instructions: taper pack; amoxicillin-pot clavulanate 875-125 mg Tablet 1 tab PO Q12H Qty: 20 0RF No Action bupropion HCl [Wellbutrin SR] 150 mg tablet sustained-release 12 hr 150 mg PO BID Qty: 180 3RF Referrals Follow up/Referrals: Drake Serrano MD [Primary Care Provider] - See instructions Activity Restrictions/Add. Instructions Additional Instructions/Restrictions: *Monitor Temp, Over the counter Motrin or Tylenol as directed/as needed Tylenol every 4 hours and Motrin every 6 hours (as long as your family doctor has told you that you can take it) for fever or pain. and straight to ER if unable to lower temp less than 101.0 after medication given *Warm salt water gargles may help to soothe the throat *Throat Lozenges? *Warm fluids like tea with honey may help to soothe the throat? *Sleep elevated *Humidifier/Vaporizer Take medication as prescribed Follow up IMMEDIATELY for new or worsening symptoms or no Noticeable improvement over the next 48-72 hours. 911 for difficulty breathing or swallowing Clinical Impressions Clinical Impression: Sinusitis Instructions Patient Instructions: DI for Sinusitis, Sinusitis, Middle Ear Infection Discharge ED Provider: Christel Sheppard [facility] General Stated complaint: [place], runny nose, congestion, body aches Mode of Arrival: Ambulatory Source of Information: Patient Limitations: No Limitations Time Seen by Provider: 09/01/22 17:30 Description of Symptoms (Recalled from Triage Doc. by RN): PATIENT C/O COUGH, CONGESTION, RUNNY NOSE, BODY ACHES, HEADACHE AND STOMACH ACHE X 3 DAYS HEENT Symptoms (Recalled from RN notes): Yes Resp Symptoms (Recalled from RN notes): No Skin Symptoms (Recalled from RN notes): No MS Symptoms (Recalled from RN notes): No Functional Status (Recalled from RN notes): WNL History of Present Illness Provider Complaint: Patient states that he has been having cough, sinus congestion and pressure, pressure in his ears and upset stomach for several days and today he was feeling worse so he came in to get checked Related Data Previous Rx's Medication Instructions Recorded bupropion HCl 150 mg tablet,12 hr 150 mg PO BID #180 ea 05/19/22 sustained-release (Wellbutrin SR) amoxicillin 875 mg-potassium 1 tab PO Q12H #20 tabs 09/01/22 clavulanate 125 mg tablet methylprednisolone 4 mg tablets in See Rx Instructions .Route 09/01/22 a dose pack (Medrol (Ulysses)) .COMPLEX 6 days #21 tabs Allergies Allergy/AdvReac Type Severity Reaction Status Date / Time No Known Allergies Allergy Verified 06/05/22 10:00 Worker's Comp Is this a Worker's Comp case?: No [facility] Disclaimer: The information contained in this section may have been updated after the patient was seen, as this information can be updated by other users. Medical History (Updated 09/01/22 @ 17:59 by Christel Sheppard APRN) Depression Surgical History (Updated 09/01/22 @ 17:42 by Yasmin Thomson RN) History of tonsillectomy Social History Smoking Status: Never smoker alcohol intake: never current occupational status: employed and other Travel in the last 8 weeks: None household members: spouse housing: house ROS Obtained: Yes All systems reviewed & no additional complaints except as documented and Yes Systems reviewed as appropriate & no additional complaints except as documented Constitutional Constitutional: Reports system reviewed and no additional complaints, except as documented and Reports as per HPI ENT Ears, Nose, Mouth, and Throat: Reports system reviewed and no additional complaints, except as documented, Reports as per HPI, Repor
[2022-09-01 17:59] VITALS: BP 127/78; PULSE 102; RESP 18; TEMP 37.2; O2SAT 99
== END 2022-09-01 18:03 | disposition home or self-care (01) ==
PROVIDERS: Emergency Provider Nurse Practitioner; PCP Family Medicine
DX: J01.90 Acute sinusitis, unspecified (principal); H66.91 Otitis media, unspecified, right ear; R11.0 Nausea; F32.A Depression, unspecified
CPT/HCPCS: 99212; 99214; G0463

== ENCOUNTER 2022-09-04 17:13 | Emergency (ER) | payer BC, SELFPAY ==
[2022-09-04 17:14] VITALS: BP 148/94; PULSE 88; RESP 18; TEMP 36.9; O2SAT 98; BMI 33.4
[2022-09-04 17:33] LABS: UTC Strep Screen (Rapid) Negative (Negative)
--- NOTE | 2022-09-04 17:41 | EXP.UTC ---
Discharge Plan Disposition Patient Disposition: Home, Self-Care Condition: Good Prescriptions Prescriptions: New albuterol sulfate [Ventolin HFA] 90 mcg/actuation HFA aerosol inhaler 2 puff inhalation Q6H PRN (Reason: shortness of breath or wheezing) Qty: 6.7 0RF promethazine-DM 6.25-15 mg/5 mL Syrup 5 ml PO Q6H PRN (Reason: Cough) Qty: 240 0RF No Action bupropion HCl [Wellbutrin SR] 150 mg tablet sustained-release 12 hr 150 mg PO BID Qty: 180 3RF methylprednisolone [Medrol (Ulysess)] 4 mg tablets,dose pack See Rx Instructions .Route .COMPLEX 6 Days Qty: 21 0RF Rx Instructions: taper pack; amoxicillin-pot clavulanate 875-125 mg Tablet 1 tab PO Q12H Qty: 20 0RF Referrals Follow up/Referrals: Drake Serrano MD [Primary Care Provider] - See instructions Activity Restrictions/Add. Instructions Additional Instructions/Restrictions: Drink plenty of fluids. Take tylenol or ibuprofen for pain or fever. Take the medications that you are already on as directed. The cough medication (promethazine dm) will make you drowsy, so don't drive or operate heavy machinery after taking it. Follow up with your regular doctor. GO TO THE ER FOR ANY WORSENING SYMPTOMS Clinical Impressions Clinical Impression: Acute bronchitis, Acute viral syndrome Instructions Patient Instructions: Acute Bronchitis, DI for Acute Bronchitis Discharge ED Provider: Tunde Horn [facility] General Stated complaint: thoat pain and lungs hurt when coughs Mode of Arrival: Ambulatory Source of Information: Patient Limitations: No Limitations Time Seen by Provider: 09/04/22 17:41 Description of Symptoms (Recalled from Triage Doc. by RN): Patient reports coughing, burning chest, stomach pains throat hurts. Was here on Thursday and states it is getting worse. HEENT Symptoms (Recalled from RN notes): Yes Resp Symptoms (Recalled from RN notes): No Skin Symptoms (Recalled from RN notes): No MS Symptoms (Recalled from RN notes): No Functional Status (Recalled from RN notes): wnl History of Present Illness Provider Complaint: He is back today with complaints of having a worsening cough. He is taking the medications as prescribed. Related Data Previous Rx's Medication Instructions Recorded bupropion HCl 150 mg tablet,12 hr 150 mg PO BID #180 ea 05/19/22 sustained-release (Wellbutrin SR) amoxicillin 875 mg-potassium 1 tab PO Q12H #20 tabs 09/01/22 clavulanate 125 mg tablet methylprednisolone 4 mg tablets in See Rx Instructions .Route 09/01/22 a dose pack (Medrol (Ulysses)) .COMPLEX 6 days #21 tabs albuterol sulfate 90 mcg/actuation 2 puff inhalation Q6H PRN 09/04/22 aerosol inhaler (Ventolin HFA) shortness of breath or wheezing #6.7 grams promethazine-DM 6.25 mg-15 mg/5 mL 5 ml PO Q6H PRN Cough #240 mL 09/04/22 oral syrup Allergies Allergy/AdvReac Type Severity Reaction Status Date / Time No Known Allergies Allergy Verified 06/05/22 10:00 Worker's Comp Is this a Worker's Comp case?: No [facility] Disclaimer: The information contained in this section may have been updated after the patient was seen, as this information can be updated by other users. Medical History Depression Surgical History History of tonsillectomy Social History Smoking Status: Never smoker alcohol intake: never current occupational status: employed and other Travel in the last 8 weeks: None household members: spouse housing: house ROS Obtained: Yes All systems reviewed & no additional complaints except as documented Constitutional Constitutional: Reports poor appetite Eyes Eyes: Reports system reviewed and no additional complaints, except as documented ENT Ears, Nose, Mouth, and Throat: Reports as per HPI Cardiovascular Cardiovascular: Reports system revi
--- NOTE | 2022-09-04 17:47 | XR_ITS ---
PROCEDURE INFORMATION: Exam: XR Chest Exam date and time: 09/04/2022 5:45 PM Age: 26 years old Clinical indication: Cough and shortness of breath; Patient HX: PT dx w sinus infection x 1 wk ago, cough w SOA persisted since w C/O pain on inspiration. Nonsmoker. ; Additional info: Cough, congestion TECHNIQUE: Imaging protocol: Radiologic exam of the chest. Views: 2 views. COMPARISON: CR XR CHEST 2V 01/23/2022 7:47 PM FINDINGS: Lungs: Slight hypoventilation on the frontal view, with mild elevation of the right hemidiaphragm with right lower pulmonary volume loss compared with the prior exam. No focal consolidation. No acute findings. Pulmonary vessels do not appear congested. Pleural spaces: Unremarkable. No significant pleural effusion. No pneumothorax. Heart/Mediastinum: The cardiac silhouette is normal. Bones/joints: There is no evidence of acute fracture. IMPRESSION: No acute findings.
[2022-09-04 18:17] VITALS: BP 148/94; PULSE 88; RESP 18; TEMP 36.9; O2SAT 98
== END 2022-09-04 18:19 | disposition home or self-care (01) ==
PROVIDERS: Emergency Provider Nurse Practitioner Family; PCP Family Medicine
DX: J20.9 Acute bronchitis, unspecified (principal); R06.89 Other abnormalities of breathing; F32.A Depression, unspecified
CPT/HCPCS: 71046; 87880; 99212; 99214; G0463

== ENCOUNTER → 2022-10-31 09:19 | Outpatient (CLI) | payer BC, SELFPAY ==
--- NOTE | 2022-10-31 10:13 | CA_ITS ---
APPROVED REPORT Exam: Exercise Treadmill Technologist: Ofelia Zhou, Ht: 5 ft 8 in Wt: 232 lbs BSA: 2.18 m2 HR: 90 bpm BP: 140/82 mmHg Rhythm: NSR Medical History Medications: Albuterol,,,,, Prednisone,,,,, BuPROPION HCI,,,,, Stress Test Details Test: Js HR Resting HR: 96 bpm Max Heart Rate (APMHR): 193 bpm Max HR Achieved: 174 bpm Target HR (85% APMHR): 164 bpm % of APMHR: 90 Recovery HR: 105 bpm HR response to stress: Normal HR response to stress BP Resting BP: 168.0/93.0 mmHg Max BP: 194.0/70.0 mmHg Recovery BP: 137.0/93.0 mmHg BP response to stress: Normal blood pressure response to stress. ECG Resting ECG: NSR, right axis deviation Stress ECG: < 0.[address] depression Arrhythmia: None Recovery ECG: Return to baseline within 3 minutes of recovery Recovery Arrhythmia: None Clinical Exercise duration: 10:00 min Highest Stage Achieved: IV Exercise capacity: 12.8 METs Overall Exercise Capacity for Age: Good Stress ECG Conclusion The patient was able to exercise for a total of 10:00 on Js Protocol. He achieved a total of 12.8 METS. He has good exercise capacity compared to age and sex matched peers. He has normal HR and BP response to exercise. Max HR: 174 % of PM: 90% Max BP: 194/70 METs: 12.8 Test stopped due to: SOA, fatigue Symptoms: SOA, burning chest discomfort. Arrhythmias/Ectopy: None. ST-T Changes: < 0.[address] depression Conclusion: Good exercise capacity. ECG stress test demonstrates no evidence of ischemia. GXT only (no imaging) Test Summary REST . . . . . . . Sitting REST . . . . . . . Standing REST 02:36 0.0 0.0 96 . 168/ 93 . . Stage 1 01:00 10.0 1.7 116 . . . . Stage 1 02:00 10.0 1.7 127 . . . . Stage 1 03:00 10.0 1.7 125 . 166/ 78 . . Stage 2 01:00 12.0 2.5 139 . . . . Stage 2 02:00 12.0 2.5 136 . . . . Stage 2 03:00 12.0 2.5 138 . 180/ 70 . . Stage 3 01:00 14.0 3.4 152 . . . . Stage 3 02:00 14.0 3.4 157 . . . . Stage 3 03:00 14.0 3.4 156 . 194/ 70 . . Stage 4 01:00 16.0 4.2 174 . . . Stop exercise at 10:00 RECOVERY 01:00 0.0 0.0 152 . . . . RECOVERY 02:00 0.0 0.0 120 . 168/ 93 . . RECOVERY 03:00 0.0 0.0 110 . 168/ 93 . . RECOVERY 04:00 0.0 0.0 102 . 169/ 92 . . RECOVERY 05:00 0.0 0.0 104 . 137/ 93 . . RECOVERY 05:23 0.0 0.0 110 . 137/ 93 . . Electronically signed by : Maci Fofana, 11/02/2022 19:29:04
== END ==
LOC: RT 09:21
PROVIDERS: PCP Family Medicine; Visit Provider Internal Medicine
DX: R06.00 Dyspnea, unspecified (principal); R07.9 Chest pain, unspecified; R00.2 Palpitations; I27.21 Secondary pulmonary arterial hypertension; R94.31 Abnormal electrocardiogram [ECG] [EKG]
CPT/HCPCS: 93017

== ENCOUNTER → 2022-11-13 11:26 | Outpatient (CLI) | payer BC, SELFPAY ==
--- NOTE | 2022-11-13 11:29 | CA_ITS ---
APPROVED REPORT EXAM: Comprehensive 2D, Doppler, and color-flow Echocardiogram Fish Protector: Azul Mclaughlin RT(R) Ht: 5 ft 8 in Wt: 232lbs BSA: 2.18 BP: 112/76 mmHg Indications: CP, palpitations, DIALLO, PHTN, abn EKG, obesity 2D Dimensions LVOT 2.14 cm (M/F) 1.5-2.5 LVEF (Hennessy's) 47.00 % M: 52 - 72 LV Volume 107.20 mL M: 62 - 150 LV Volume Index 49.17 mL/m2 M: 34 - 74 M-Mode Dimensions RVDd 2.68 cm (0.9-2.6) LA Diam 3.59 cm (1.9-4.0) LVDd 5.26 cm (3.5-5.7) Ao Diam 3.00 cm (2.0-3.7) LVDs 3.90 cm (3.5-5.7) IVSd 0.93 cm (0.6-1.1) PWd 0.89 cm (0.6-1.1) EF (Teich) 50.50% FS 25.90% EDV (Teich) 133.00 mL ESV (Teich) 65.90 mL LV Diastology E Decel Time 180.00 (160-240 msec) E/A Ratio 1.5 MED E' 8.70 (< 7 cm/sec) E'/MED E' Ratio 7.49 (>14) LAT E' 13.20 (<10 cm/sec) E/LAT E' Ratio 4.94 (>14) Mitral Valve MV E Max Mathew. 65.00 (40-130 cm/s) MV A Velocity 44.00 (40-130 cm/s) E/A Ratio 1.48 MV Decel. Time 180.00 (160-240 ms) MV PHT 53.00 ms Pulmonary Valve PV Peak Velocity 66.00 (50-150 cm/s) Left Ventricle The left ventricle is normal size. The left ventricular systolic function is normal. The left ventricular ejection fraction is within the normal range. There is normal left ventricular wall thickness. There is normal LV segmental wall motion. The left ventricular diastolic function is normal. LVEF is 55-60%. Right Ventricle The right ventricle is normal size. The right ventricular systolic function is normal. Atria The left atrium size is normal. The right atrium size is normal. There is no Doppler evidence of interatrial shunt. Aortic Valve The aortic valve is trileaflet. The aortic valve opens well. There is no aortic valvular stenosis. No aortic regurgitation is present. Mitral Valve The mitral valve is normal in structure. No evidence of mitral valve stenosis. Trace mitral regurgitation. Tricuspid Valve The tricuspid valve leaflets are thin and pliable. There is trace tricuspid valve regurgitation noted. RVSP is normal. Pulmonic Valve The pulmonary valve is normal in structure. Mild pulmonic regurgitation. Great Vessels The aortic root is normal in size. The ascending aorta is normal in size. IVC is normal in size and collapses >50% with inspiration. Pericardium There is no pericardial effusion. Other Information Study Quality: Adequate Conclusion Normal biventricular systolic function. No significant valvular disease. Electronically signed by : Maci Fofana, 11/14/2022 19:18:04
== END ==
LOC: RT 11:27
PROVIDERS: PCP Family Medicine; Visit Provider Internal Medicine
DX: R06.00 Dyspnea, unspecified (principal); R07.9 Chest pain, unspecified; R00.2 Palpitations; I27.21 Secondary pulmonary arterial hypertension; R94.31 Abnormal electrocardiogram [ECG] [EKG]
CPT/HCPCS: 93306

== ENCOUNTER → 2022-11-18 14:02 | Outpatient (CLI) | payer BC, SELFPAY ==
[2022-11-18 15:25] LABS: Alanine Aminotransferase 30 U/L (12-78); Albumin Level 4.7 g/dl (3.5-5.0); Alkaline Phosphatase 90 U/L (38-126); Anion Gap 14.4 mEq/L (5-15); Aspartate Amino Transferase 28 U/L (17-59); Bilirubin,Indirect 0.2 mg/dL (0.0-0.9); Bilirubin,Total 0.2 mg/dl (0.2-1.3); Bilirubin,Unconjugated 0.4 mg/dL (0.0-1.1); Blood Urea Nitrogen 20 mg/dl (9-20); Calcium 9.7 mg/dl (8.4-10.2); Carbon Dioxide 29 mmol/L (22.0-30.0); Chloride 102 mmol/L (98-107); Chol/HDL Ratio 4.3 (1-3.5); Cholesterol 169 mg/dl (140-200); Estimated Glomerular Filt Rate 101 ml/min (>60); GFR (African American) 122 ML/MIN (>60); Glucose 91 mg/dl (74-100); HDL Cholesterol 39 mg/dl (40-60); Potassium 4.4 mmoL/L (3.5-5.1); Sodium 141 mmol/L (136-145); Total Protein,Serum 7.6 g/dl (6.3-8.2); Triglycerides 109 mg/dl (30-150); VLDL Cholesterol 22 mg/dL (0-40)
[2022-11-18 15:30] LABS: Basophils % 0.4 % (0.1-2.0); Eosinophils # 0.1 K/mm3 (0.0-0.4); Eosinophils % 2.1 % (0.1-12.0); Hemoglobin 15.3 g/dL (14.1-18.0); Lymphocytes # 2.8 K/mm3 (0.7-4.5); Lymphocytes % 41.6 % (10-50); Mean Corpuscular Hemoglobin 28.1 pg (27.0-31.2); Mean Corpuscular Volume 82.6 fl (80-94); Mean Platelet Volume 8.1 fl (7.4-10.4); Monocytes # 0.5 K/mm3 (0.1-1.0); Monocytes % 6.7 % (1.7-9.3); Neutrophils # 3.3 K/mm3 (1.8-7.8); Neutrophils % 49.2 % (37.0-80.0); Platelet Count 294 K/mm3 (142-424); Red Blood Count 5.45 M/mm3 (4.60-6.20); Red Cell Distribution Width 12.8 % (11.5-17.5); White Blood Count 6.7 K/mm3 (4.8-10.8)
[2022-11-18 15:37] LABS: Direct LDL Cholesterol 101.74 mg/dL (100-129)
[2022-11-18 15:41] LABS: Free T4 (Free Thyroxine) 0.93 ng/dl (0.78-2.19)
[2022-11-18 15:55] LABS: Thyroid Stimulating Hormone 1.42 uIU/mL (0.465-4.68)
[2022-11-23 13:25] LABS: Renin Activity, Plasma 1.222 ng/mL/hr (0.167-5.380)
== END ==
LOC: LAB 14:03
PROVIDERS: PCP Family Medicine; Visit Provider Internal Medicine
DX: R06.00 Dyspnea, unspecified (principal); R07.9 Chest pain, unspecified; R00.2 Palpitations; I27.21 Secondary pulmonary arterial hypertension; R94.31 Abnormal electrocardiogram [ECG] [EKG]
CPT/HCPCS: 36415; 80048; 80061; 80076; 82088; 83735; 84244; 84439; 84443; 85025; 93270

== ENCOUNTER 2022-12-08 06:51 | Outpatient (CLI) | payer BC, SELFPAY ==
[2022-12-08 07:48] VITALS: BMI 34.9
[2022-12-08 08:00] VITALS: BP 130/78; PULSE 59; RESP 18; O2SAT 100
[2022-12-08 08:15] VITALS: BP 121/74; PULSE 58; RESP 18; O2SAT 97
[2022-12-08 08:20] VITALS: BP 124/70; PULSE 60; RESP 17; O2SAT 98
== END 2022-12-08 08:59 | disposition home or self-care (01) ==
PROVIDERS: PCP Family Medicine; Visit Provider Internal Medicine
DX: R06.00 Dyspnea, unspecified (principal); R07.89 Other chest pain
CPT/HCPCS: 75574; Q9967

== ENCOUNTER 2023-03-13 17:41 | Emergency (ER) | payer BC, SELFPAY ==
--- NOTE | 2023-03-13 17:51 | XR_ITS ---
PROCEDURE INFORMATION: Exam: XR Right Foot Exam date and time: 03/13/2023 5:54 PM Age: 27 years old Clinical indication: Injury or trauma; Other: Stepped on nail; Puncture; Foot; Right; With foreign body TECHNIQUE: Imaging protocol: Radiologic exam of the right foot. Views: 3 or more views. COMPARISON: No relevant prior studies available. FINDINGS: Bones/joints: No acute osseous injury. Soft tissues: There is some soft tissue swelling. No radiopaque foreign body is seen. IMPRESSION: No radiopaque foreign body or acute osseous abnormality.
[2023-03-13 18:00] VITALS: BP 124/86; PULSE 73; RESP 18; TEMP 37; O2SAT 100; BMI 35.4
--- NOTE | 2023-03-13 18:32 | EXP.UTC ---
Discharge Plan Disposition Patient Disposition: Home, Self-Care Condition: Good Prescriptions Prescriptions: New amoxicillin-pot clavulanate 875-125 mg Tablet 1 tab PO Q12H 7 Days Qty: 14 0RF No Action escitalopram oxalate [Lexapro] 20 mg tablet 20 mg PO DAILY Qty: 90 3RF Referrals Follow up/Referrals: Drake Serrano MD [Primary Care Provider] - See instructions Activity Restrictions/Add. Instructions Additional Instructions/Restrictions: Clean area with antibacterial soap and water 3-4 times daily and apply neosporin Take oral antibiotic as prescribed Follow up with your Family Doctor if any swelling, redness, streaks, fever or chills Straight to ER if any life threatening symptoms Area on foot will get sore this is normal may take Motrin and/or Tylenol for pain Clinical Impressions Clinical Impression: Puncture wound Instructions Patient Instructions: DI for Puncture Wound Discharge ED Provider: Christel Sheppard [facility] [place] HPI General Stated complaint: AO 03/13, right foot pain Mode of Arrival: Ambulatory Source of Information: Patient Limitations: No Limitations Time Seen by Provider: 03/13/23 18:32 Description of Symptoms (Recalled from Triage Doc. by RN): Stepped on a ozzy nail on right foot HEENT Symptoms (Recalled from RN notes): Yes Resp Symptoms (Recalled from RN notes): No Skin Symptoms (Recalled from RN notes): No MS Symptoms (Recalled from RN notes): No Functional Status (Recalled from RN notes): n/a History of Present Illness Provider Complaint: Patient states that earlier this evening he was outside and stepped on a board with a nail in it and it went into the bottom of his shoe into his foot states that he is unsure of his last tetanus so he came in to get it Related Data Previous Rx's Medication Instructions Recorded escitalopram oxalate 20 mg tablet 20 mg PO DAILY #90 tabs 02/23/23 (Lexapro) amoxicillin 875 mg-potassium 1 tab PO Q12H 7 days #14 tabs 03/13/23 clavulanate 125 mg tablet Allergies Allergy/AdvReac Type Severity Reaction Status Date / Time No Known Allergies Allergy Verified 03/13/23 18:27 Worker's Comp Is this a Worker's Comp case?: No [facility] Disclaimer: The information contained in this section may have been updated after the patient was seen, as this information can be updated by other users. Medical History Abnormal electrocardiogram [ECG] [EKG] Chest pain Depression Dyspnea Palpitations Pulmonary arterial hypertension Noted on CTA chest Surgical History History of tonsillectomy Social History Smoking Status: Never smoker alcohol intake: never current occupational status: employed and other Travel in the last 8 weeks: None household members: spouse housing: house ROS Obtained: Yes All systems reviewed & no additional complaints except as documented and Yes Systems reviewed as appropriate & no additional complaints except as documented Constitutional Constitutional: Reports system reviewed and no additional complaints, except as documented and Reports as per HPI ENT Ears, Nose, Mouth, and Throat: Reports system reviewed and no additional complaints, except as documented and Reports as per HPI Cardiovascular Cardiovascular: Reports system reviewed and no additional complaints, except as documented and Reports as per HPI Respiratory Respiratory: Reports system reviewed and no additional complaints, except as documented and Reports as per HPI Gastrointestinal Gastrointestingal: Reports system reviewed and no additional complaints, except as documented and as per HPI Genitourinary Male Genitourinary: Reports system reviewed and no additional complaints, except as documented and Reports as per HPI Musculoskeletal Musculoskeletal: Reports system reviewed and no additional
[2023-03-13 19:01] VITALS: BP 124/86; PULSE 73; RESP 18; TEMP 37; O2SAT 100
== END 2023-03-13 19:01 | disposition home or self-care (01) ==
PROVIDERS: Emergency Provider Nurse Practitioner; PCP Family Medicine
DX: S91.331A Puncture wound without foreign body, right foot, initial encounter (principal); Z23 Encounter for immunization; W45.0XXA Nail entering through skin, initial encounter
CPT/HCPCS: 73630; 90471; 90715; 99212; 99214; G0463

== ENCOUNTER 2023-12-05 19:47 | Emergency (ER) | payer MEDICAID, SELFPAY ==
[2023-12-05 19:48] VITALS: BP 124/86; PULSE 76; RESP 18; TEMP 37; O2SAT 97; BMI 34.9
[2023-12-05 20:58] VITALS: BP 122/78; PULSE 78; RESP 18; TEMP 36.8; O2SAT 98
--- NOTE | 2023-12-05 23:05 | HMH.EDGENADL ---
Discharge Plan Disposition Patient Disposition: Home, Self-Care Condition: Good Prescriptions Prescriptions: New fluticasone propionate [Flonase Allergy Relief] 50 mcg/actuation spray,suspension 1 spray intranasal BID Qty: 16 0RF Rx Instructions: administer into each nostril cetirizine [Zyrtec] 10 mg tablet 10 mg PO DAILY Qty: 30 0RF [id number]-sjmlozdfo-QJ [Bromfed DM] 2-30-10 mg/5 mL syrup 5 ml PO Q6H PRN (Reason: cold symptoms) Qty: 118 0RF No Action trazodone 150 mg tablet 150 mg PO HS PRN (Reason: sleep) Qty: 30 12RF Referrals Follow up/Referrals: Drake Serrano MD [Primary Care Provider] - See instructions Activity Restrictions/Add. Instructions Additional Instructions/Restrictions: You were evaluated in the emergency department today. At this time, we feel your symptoms are likely viral. Please warehouse picker your prescriptions at the pharmacy and take them as prescribed. You may also take Tylenol and ibuprofen every 4-6 hours at home as needed for pain/fever. Make sure you stay hydrated. Follow-up closely with your primary care provider. Return to the emergency department for new or significantly worsening symptoms. Clinical Impressions Clinical Impression: Viral URI Stand Alone Forms Stand Alone Forms: Work/School Release Instructions Patient Instructions: DI for Viral Upper Respiratory Infection -- Adult Print Language Print Language: Mongolian Discharge ED Provider: Rosio Guzmán General Adult HPI General Chief complaint: Upper Respiratory Infection Stated complaint: possible sinus infection Time Seen by Provider: 12/05/23 20:15 Mode of Arrival: Ambulatory Source of Information: Patient Limitations: No Limitations Description of Symptoms (Recalled from ER Triage Doc. by RN): Patient reports nasal congestion that started last night and symptoms have progressed to include dizziness, headache, and fatigue today. Patient denies fevers at home, denies known sick contacts. History of Present Illness HPI narrative: This patient is a 28-year-old male who denies significant past medical history presenting to the emergency department for evaluation with concern for nasal congestion that started last night. He checked in because they were bringing his daughter with concern for possible head injury. He also had some headache, sore throat, and fatigue today. No other concerns noted at this time. No known medical problems. Related Data Previous Rx's ?Medication ?Instructions ?Recorded trazodone 150 mg tablet 150 mg PO HS PRN sleep #30 tabs 09/07/23 mwxjbscfeltwikr-ccrxqzziewsczlj-SQ 5 ml PO Q6H PRN cold symptoms #118 12/05/23 2 mg-30 mg-10 mg/5 mL oral syrup mL (Bromfed DM) cetirizine 10 mg tablet (Zyrtec) 10 mg PO DAILY #30 tabs 12/05/23 fluticasone propionate 50 1 spray intranasal BID #16 grams 12/05/23 mcg/actuation nasal spray,suspension (Flonase Allergy Relief) Allergies Allergy/AdvReac Type Severity Reaction Status Date / Time No Known Allergies Allergy Verified 09/07/23 14:58 [facility] Disclaimer: The information contained in this section may have been updated after the patient was seen, as this information can be updated by other users. Medical History Abnormal electrocardiogram [ECG] [EKG] Pulmonary arterial hypertension Dyspnea Palpitations Chest pain Depression Surgical History History of tonsillectomy Social History Smoking Status: Never smoker alcohol intake: never current occupational status: employed and other Travel in the last 8 weeks: None household members: spouse housing: house ROS Obtained: Yes All systems reviewed & no additional complaints except as documented Physical Exam General General appearance: alert and in no apparent distress Head Head exam: atraumatic and normocephalic Eye Eye exam: Present normal appearance, PERRL and EOMI ENT ENT exam: Present normal exam, normal oropharynx, mucous membranes moist and normal external ear exam Neck Neck exam: Present normal inspection, full ROM and trachea midline; Absent tenderness Chest Chest inspection: Present normal inspection and symmetric chest wall rise; Absent tenderness Respiratory Respiratory exam: Present normal lung sounds bilaterally; Absent respiratory distress, wheezes, stridor or accessory muscle use Cardiovascular Cardiovascular exam: Present regular rate and normal rhythm Abdominal Exam Abdominal exam: Present soft; Absent distention, tenderness or guarding Extremities Exam Extremities exam: Present normal inspection, full ROM and normal capillary refill; Absent tenderness or edema Back Exam Back exam: Present normal inspection and full ROM; Absent tenderness Neurological Exam Neurological exam: Present alert, oriented X3, CN II-XII intact and normal gait; Absent motor sensory deficit Psychiatric Psychiatric exam: Present normal affect and normal mood Skin Skin exam: Present warm and dry Medical Decision Making Medical Records Medical records reviewed: Yes I reviewed the patient's medical records. Jigar Inquiry Pt receiving controlled substance: No Vital Signs: 12/05/23 19:48 12/05/23 20:58 Temperature 98.6 F 98.2 F Temperature Source Oral Oral Pulse Rate 78 Pulse Rate [Left Radial] 76 Respiratory Rate 18 18 Blood Pressure 122/78 Blood Pressure [Right Arm] 124/86 Blood Pressure Mean [Right Arm] 98 Blood Pressure Source [Right Arm] Automatic Cuff Blood Pressure Position [Right Arm] Sitting 02 Sat by Pulse Oximetry 97 Oxygen Delivery Method Room Air Room Air Lab Data Lab results reviewed: Yes I reviewed the patient's lab results. Medical Decision Narrative: In summary, this patient is a 28-year-old male presenting to the Emergency Department for evaluation of nasal congestion. Differential diagnoses considered include but are not limited to viral syndrome, bacterial sinusitis, allergic rhinitis. Ruling out the most morbid conditions drove assessment. On exam, the patient is very well-appearing. Send symptoms only started yesterday and he has no mucopurulent drainage, I feel he likely has viral upper respiratory infection. Ultimately, I do not feel that antibiotics are labs or imaging are indicated. I feel he is appropriate for discharge home with prescriptions for Bromfed, Flonase, and Zyrtec to treat symptoms. He was given strict return precautions as well as instructions for supportive management and close outpatient follow-up. He was discharged after all questions were answered. Critical Care Critical Care Time Critical Care Time: No
== END 2023-12-05 21:00 | disposition home or self-care (01) ==
PROVIDERS: Emergency Provider Emergency Medicine; PCP Family Medicine
DX: R51.9 Headache, unspecified (principal); R42 Dizziness and giddiness; R53.83 Other fatigue; J06.9 Acute upper respiratory infection, unspecified; R09.81 Nasal congestion; I27.20 Pulmonary hypertension, unspecified
CPT/HCPCS: 99283

== ENCOUNTER 2023-12-18 10:19 | Emergency (ER) | payer MEDICAID, SELFPAY ==
[2023-12-18 11:06] VITALS: BP 134/85; PULSE 69; RESP 20; TEMP 36.9; O2SAT 100; BMI 34.9
[2023-12-18 11:08] LABS: UTC Strep Screen (Rapid) Negative (Negative)
--- NOTE | 2023-12-18 11:16 | ED_ITS ---
Discharge Plan Disposition Patient Disposition: Home, Self-Care Condition: Good Prescriptions Prescriptions: New amoxicillin 500 mg capsule 500 mg PO BID 10 Days Qty: 20 0RF No Action trazodone 150 mg tablet 150 mg PO HS PRN (Reason: sleep) Qty: 30 12RF fluticasone propionate [Flonase Allergy Relief] 50 mcg/actuation spray,suspension 1 spray intranasal BID Qty: 16 0RF Rx Instructions: administer into each nostril cetirizine [Zyrtec] 10 mg tablet 10 mg PO DAILY Qty: 30 0RF vqcnilytyyndqdk-qeepukdnt-SC [Bromfed DM] 2-30-10 mg/5 mL syrup 5 ml PO Q6H PRN (Reason: cold symptoms) Qty: 118 0RF Referrals Follow up/Referrals: Drake Serrano MD [Primary Care Provider] - See instructions Activity Restrictions/Add. Instructions Additional Instructions/Restrictions: *Monitor Temp, Over the counter Motrin or Tylenol as directed/as needed Tylenol every 4 hours and Motrin every 6 hours (as long as your family doctor has told you that you can take it) for fever or pain. and straight to ER if unable to lower temp less than 101.0 after medication given *Warm salt water gargles may help to soothe the throat *Throat Lozenges? *Warm fluids like tea with honey may help to soothe the throat? *Sleep elevated *Humidifier/Vaporizer Your throat swab was sent for culture. Those results are typically sent to your primary care. Be sure to follow up in 2-3 days with your family doctor/primary care physician if no improvement so they can review those result and treat if necessary. If you don?t have a primary care doctor, I recommend you get one but in the mean time, you will have to return to a walk in clinic Follow up IMMEDIATELY for new or worsening symptoms or no Noticeable improvement over the next 48-72 hours. 911 for difficulty breathing or swal lowing Clinical Impressions Clinical Impression: Pharyngitis Qualifiers: Pharyngitis/tonsillitis etiology: unspecified etiology Qualified Code(s): J02.9 - Acute pharyngitis, unspecified Instructions Patient Instructions: Sore Throat, Amoxicillin Print Language Print Language: Portuguese Discharge ED Provider: Christel Sheppard [facility] [place] HPI General Stated complaint: sore throat, diarrhea, congestion Mode of Arrival: Ambulatory Time Seen by Provider: 12/18/23 11:16 Description of Symptoms (Recalled from Triage Doc. by RN): SORE THROAT WITH RED AND WHITE PATCHES HEENT Symptoms (Recalled from RN notes): Yes Resp Symptoms (Recalled from RN notes): No Skin Symptoms (Recalled from RN notes): No MS Symptoms (Recalled from RN notes): No Functional Status (Recalled from RN notes): WNL History of Present Illness Provider Complaint: Patient states that he has been having sore throat and has blister like patches on the back of his throat so today he came in to get checked Related Data Previous Rx's ?Medication ?Instructions ?Recorded trazodone 150 mg tablet 150 mg PO HS PRN sleep #30 tabs 09/07/23 zwkgjnheytpylej-uatzmdajrfaalyl-UW 5 ml PO Q6H PRN cold symptoms #118 12/05/23 2 mg-30 mg-10 mg/5 mL oral syrup mL (Bromfed DM) cetirizine 10 mg tablet (Zyrtec) 10 mg PO DAILY #30 tabs 12/05/23 fluticasone propionate 50 1 spray intranasal BID #16 grams 12/05/23 mcg/actuation nasal spray,suspension (Flonase Allergy Relief) amoxicillin 500 mg capsule 500 mg PO BID 10 days #20 caps 12/18/23 Allergies Allergy/AdvReac Type Severity Reaction Status Date / Time No Known Allergies Allergy Verified 09/07/23 14:58 Worker's Comp Is this a Worker's Comp case?: No [facility] Disclaimer: The information contained in this section may have been updated after the patient was seen, as this information can be updated by other users. Medical History Abnormal electrocardiogram [ECG] [EKG] Pulmonary arterial hypertension Dyspnea Palpitations Chest pain Depression Surgical History History of tonsillectomy Social History Smoking Status: Never smoker alcohol intake: never current occupational status: employed and other Travel in the last 8 weeks: None household members: spouse housing: house ROS Obtained: Yes All systems reviewed & no additional complaints except as documented and Yes Systems reviewed as appropriate & no additional complaints except as documented Constitutional Constitutional: Reports system reviewed and no additional complaints, except as documented and Reports as per HPI ENT Ears, Nose, Mouth, and Throat: Reports system reviewed and no additional complaints, except as documented, Reports as per HPI and Reports sore throat Cardiovascular Cardiovascular: Reports system reviewed and no additional complaints, except as documented and Reports as per HPI Respiratory Respiratory: Reports system reviewed and no additional complaints, except as documented and Reports as per HPI Gastrointestinal Gastrointestingal: Reports system reviewed and no additional complaints, except as documented and as per HPI Physical Exam General General appearance: alert and in no apparent distress ENT ENT exam: Present mucous membranes moist Chest Chest inspection: Present normal inspection and symmetric chest wall rise Respiratory Respiratory exam: Present normal lung sounds bilaterally; Absent respiratory distress or wheezes Cardiovascular Cardiovascular exam: Present regular rate, normal rhythm and normal heart sounds Neurological Exam Neurological exam: Present alert, oriented X3 and normal gait Medical Decision Making Medical Records Screening: Per USPSTF and CDC recommendations, given the prevalence of disease in our region, it is our hospital?s policy to screen for HIV and viral Hepatitis for all patients aged 18 and over and those with ongoing risk factors. Jigar Inquiry Pt receiving controlled substance: No Jigar was queried for this patient: No Vital Signs: 12/18/23 11:06 Temperature 98.4 F Temperature Source Oral Pulse Rate [Left Brachial] 69 Respiratory Rate 20 Blood Pressure [Left Arm] 134/85 Blood Pressure Mean [Left Arm] 101 02 Sat by Pulse Oximetry 100 Lab Data Lab results reviewed: Yes I reviewed the patient's lab results. Lab Results 12/18/23 11:02: Strep Scn Rapid Clinic Negative Orders (Tests/Meds): ORDERS Category Date Time Status Strep Screen Confirmation Stat Micro 12/18/23 11:02 Received
[2023-12-18 11:34] VITALS: BP 134/85; PULSE 69; RESP 20; TEMP 36.9
== END 2023-12-18 11:37 | disposition home or self-care (01) ==
PROVIDERS: Emergency Provider Nurse Practitioner; PCP Family Medicine
DX: J02.9 Acute pharyngitis, unspecified (principal); R19.7 Diarrhea, unspecified; R09.81 Nasal congestion; I27.20 Pulmonary hypertension, unspecified
CPT/HCPCS: 87880; 99212; 99214; G0463

== ENCOUNTER 2024-01-27 20:34 | Emergency (ER) | payer MEDICAID, SELFPAY ==
[2024-01-27 20:36] VITALS: BP 153/81; PULSE 75; RESP 16; TEMP 36.6; O2SAT 96; BMI 34.9
--- NOTE | 2024-01-27 21:45 | ED_ITS ---
<Statement entered by Rosio Guzmán DO - 01/28/24 01:03> I was consulted by the ARSLAN, and we discussed the complexity of the problems being addressed. I approved the treatment and management plan for this patient's care in the emergency department, thus performing a substantive portion of the medical decision making. Rosio Guzmán DO Discharge Plan Disposition Patient Disposition: Home, Self-Care Condition: Good Prescriptions Prescriptions: No Action trazodone 150 mg tablet 150 mg PO HS PRN (Reason: sleep) Qty: 30 12RF fluticasone propionate [Flonase Allergy Relief] 50 mcg/actuation spray,suspension 1 spray intranasal BID Qty: 16 0RF Rx Instructions: administer into each nostril cetirizine [Zyrtec] 10 mg tablet 10 mg PO DAILY Qty: 30 0RF xlkuqqmmpefwsta-ntccvfekx-JA [Bromfed DM] 2-30-10 mg/5 mL syrup 5 ml PO Q6H PRN (Reason: cold symptoms) Qty: 118 0RF amoxicillin 500 mg capsule 500 mg PO BID 10 Days Qty: 20 0RF Referrals Follow up/Referrals: Miguel Davies MD [Physician] - See instructions Drake Serrano MD [Primary Care Provider] - See instructions Activity Restrictions/Add. Instructions Additional Instructions/Restrictions: But I would referringPlease call in the morning to schedule appointment with ear nose and throat. You may use ice from using ibuprofen or any other nonsteroidals due to the risk of bleeding until evaluated by ENT. Return to ER for any worsening signs or symptoms as needed. Clinical Impressions Clinical Impression: Closed fracture nasal bone Instructions Patient Instructions: DI for Nose Fracture Print Language Print Language: [place] Discharge ED Provider: Rosio Guzmán General Adult HPI General Chief complaint: Recheck/Abnormal Lab/Rx Stated complaint: AO 10-30 hit by baseball Time Seen by Provider: 01/27/24 21:45 Mode of Arrival: Ambulatory Source of Information: Patient Limitations: No Limitations Description of Symptoms (Recalled from ER Triage Doc. by RN): Pt got hit in the face around 1900 tonight. Pt reports headache at this time. Pt reports after it happened, his vision was dark and his nose bled. denies LOC, not on blood thinners. Vision is clear now. Pt took iburpofen at 1930 History of Present Illness HPI narrative: Patient presents for evaluation of blunt force trauma to the nose. 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 The ball struck him squarely on the bridge of the nose. He did have an immediate nosebleed however he was able to get it stopped with direct pressure. He said his nose has swollen significantly in the time since to the time of presentation. He denies any headache loss of consciousness double vision or any other change in level of consciousness. Related Data Previous Rx's ?Medication ?Instructions ?Recorded trazodone 150 mg tablet 150 mg PO HS PRN sleep #30 tabs 09/07/23 ptxhzjjhqvieyde-rploeqqtubsvpxd-FY 5 ml PO Q6H PRN cold symptoms #118 12/05/23 2 mg-30 mg-10 mg/5 mL oral syrup mL (Bromfed DM) cetirizine 10 mg tablet (Zyrtec) 10 mg PO DAILY #30 tabs 12/05/23 fluticasone propionate 50 1 spray intranasal BID #16 grams 12/05/23 mcg/actuation nasal spray,suspension (Flonase Allergy Relief) amoxicillin 500 mg capsule 500 mg PO BID 10 days #20 caps 12/18/23 Allergies Allergy/AdvReac Type Severity Reaction Status Date / Time No Known Allergies Allergy Verified 09/07/23 14:58 [facility] Disclaimer: The information contained in this section may have been updated after the patient was seen, as this information can be updated by other users. Medical History Abnormal electrocardiogram [ECG] [EKG] Pulmonary arterial hypertension Dyspnea Palpitations Chest pain Depression Surgical History History of tonsillectomy Social History Smoking Status: Never smoker alcohol intake: never current occupational status: employed and other Travel in the last 8 weeks: None household members: spouse housing: house Other Medical History Have you received the Flu Vaccine for this season: No Have you received the Pneumonia Vaccine: No ROS Obtained: Yes Systems reviewed as appropriate & no additional complaints except as documented Physical Exam General General appearance: alert and in no apparent distress Respiratory Respiratory exam: Present normal lung sounds bilaterally Cardiovascular Cardiovascular exam: Present regular rate Neurological Exam Neurological exam: Present alert and oriented X3 Medical Decision Making Medical Records Medical records reviewed: Yes I reviewed the patient's medical records. Screening: Per USPSTF and CDC recommendations, given the prevalence of disease in our region, it is our hospital?s policy to screen for HIV and viral Hepatitis for all patients aged 18 and over and those with ongoing risk factors. Jigar Inquiry Pt receiving controlled substance: No Vital Signs: 01/27/24 20:36 Temperature 97.9 F Temperature Source Oral Pulse Rate [Right Radial] 75 Respiratory Rate 16 Blood Pressure [Right Arm] 153/81 H Blood Pressure Mean [Right Arm] 105 Blood Pressure Source [Right Arm] Automatic Cuff Blood Pressure Position [Right Arm] Sitting 02 Sat by Pulse Oximetry 96 Oxygen Delivery Method Room Air Lab Data Lab results reviewed: Yes I reviewed the patient's lab results. Orders (Tests/Meds): ORDERS Category Date Time Status CT facial bones wo con Stat Cat Scan 01/27/24 21:50 Completed Medical Decision Narrative: In summary patient is a-year-old male who presents to the emergency department for evaluation of blunt force trauma to the nose. Patient is hemodynamically stable upon arrival, febrile. Physical exam is remarkable for marked swelling of the nose all the way up to the medial epicanthal folds but not intruding into the eye. There is no pain on extraocular exam. Nasal speculum exam reveals diffuse edema and there is stigmata of recent bleed in the right anterior area but no active bleeding currently do not feel a palpable bony deformity however he is exquisitely tender bilaterally.. Differential diagnosis includes contusion versus fracture. Initial workup will be conducted with CT scan of facial bones. Initial interventions include Tylenol. Initial workup reviewed by me and my informal interpretation shows an anterior nasal bone fracture. Given that patient will be referred to ear nose and throat for ongoing follow-up Critical Care Critical Care Time Critical Care Time: No
--- NOTE | 2024-01-27 21:50 | CT_ITS ---
PROCEDURE INFORMATION: Exam: CT Maxillofacial Without Contrast Exam date and time: 01/27/2024 9:58 PM Age: 28 years old Clinical indication: Injury or trauma; Other: Baseball hit nose; Bleeding/hemorrhage and other: Pain; Additional info: Trauma to the nose TECHNIQUE: Imaging protocol: Computed tomography of the face without contrast. Radiation optimization: All CT scans at this facility use at least one of these dose optimization techniques: automated exposure control; mA and/or kV adjustment per patient size (includes targeted exams where dose is matched to clinical indication); or iterative reconstruction. COMPARISON: No relevant prior studies available. FINDINGS: Paranasal sinuses: No air-fluid levels. Orbital cavities: Orbits are normal. Globes are unremarkable. Bones: Mildly displaced anterior nasal bone fracture. Soft tissues: Unremarkable. IMPRESSION: Anterior nasal bone fracture.
[2024-01-27 22:50] VITALS: BP 118/79; PULSE 80; RESP 20; TEMP 36.8; O2SAT 98
== END 2024-01-27 22:52 | disposition home or self-care (01) ==
PROVIDERS: Emergency Provider Emergency Medicine; PCP Family Medicine
DX: S02.2XXA Fracture of nasal bones, initial encounter for closed fracture (principal); R51.9 Headache, unspecified; H53.9 Unspecified visual disturbance; R04.0 Epistaxis; W21.03XA Struck by baseball, initial encounter; Y93.64 Activity, baseball; Y92.838 Other recreation area as the place of occurrence of the external cause
CPT/HCPCS: 70486; 99284

== ENCOUNTER 2024-07-22 07:48 | Outpatient (CLI) | payer MEDICAID, SELFPAY ==
[2024-07-22 17:48] LABS: Basophils % 0.3 % (0.1-2.0); Eosinophils # 0.2 Kmm3 (0.0-0.4); Hematocrit 44.5 % (42.0-52.0); Hemoglobin 15.2 g/dL (14.1-18.0); Lymphocytes # 2.7 K/mm3 (0.7-4.5); Mean Corpuscular HGB Conc 34.2 g/dL (31.8-35.4); Mean Corpuscular Hemoglobin 28.1 pg (27.0-31.2); Mean Corpuscular Volume 82.3 fl (80-94); Monocytes # 0.7 K/mm3 (0.1-1.0); Monocytes % 9.4 % (1.7-9.3); Nucleated Red Blood Cells # 0 10^3/uL; Nucleated Red Blood Cells % 0 %; Platelet Count 310 K/mm3 (142-424); Red Blood Count 5.41 M/mm3 (4.60-6.20); Red Cell Distribution Width 12.1 % (11.5-17.5); Red Cell Distribution Width-SD 36.2 fL; White Blood Count 7.7 K/mm3 (4.8-10.8)
== END 2024-07-22 23:59 | disposition home or self-care (01) ==
LOC: LAB.DROPOF 07-23 07:48
PROVIDERS: PCP Family Medicine; Visit Provider Family Medicine
DX: Z12.9 Encounter for screening for malignant neoplasm, site unspecified (principal)
CPT/HCPCS: 85025

== ENCOUNTER 2025-03-29 09:53 | Outpatient (CLI) | payer MEDICAID, SELFPAY ==
--- NOTE | 2025-03-29 10:00 | US_ITS ---
FINAL REPORT TECHNIQUE: Sonographic images of the testicles and scrotum were obtained in the longitudinal and transverse planes. CLINICAL HISTORY: .pt feels lump on rt side for years-- increasing COMPARISON: None FINDINGS: The right testicle measures 3.6 x 5.2 x 2.7 centimeters. There is no intratesticular mass. There are 2 right epididymal cysts with the largest measuring 13 mm. No significant hydrocele. Positive blood flow with no evidence of torsion. The left testicle measures 4.5 x 5.6 x 2.4 centimeters. There is no intratesticular mass. There is a 5 mm left epididymal cyst. No significant hydrocele. There is positive blood flow with no evidence of torsion. IMPRESSION: No evidence of intratesticular mass or testicular torsion. Bilateral epididymal cysts. Reviewed, Interpreted and Dictated by Olinda Ardon MD Transcribed by Nikole Sun Authenticated and . [facility]
== END 2025-03-29 23:59 | disposition home or self-care (01) ==
LOC: RAD 09:54
PROVIDERS: PCP Family Medicine; Visit Provider Family Medicine
DX: N50.3 Cyst of epididymis (principal)
CPT/HCPCS: 76870